=== PATIENT | male | born 1975 | race Caucasian/White ===

== ENCOUNTER → 2016-06-19 | Outpatient (CLI) | payer MEDICAID | LOC: LAB 08:23 | PROVIDERS: ATTEND Nurse Practitioner Family | DX: E03.9 Hypothyroidism, unspecified (principal) | CPT/HCPCS: 36415; 84443 ==

== ENCOUNTER 2016-06-28 19:21 | Emergency (ER) | payer MEDICAID ==
--- NOTE | 2016-06-28 19:33 | ER Document Report ---
ED Medical Screen (RME) - General Stated Complaint: DIZZINESS Notes: Dizziness progressive over the last several weeks today he had a syncopal episode. Syncopal episode after changing position I greeted and performed a rapid initial assessment of this patient. Comprehensive ED assessment and evaluation of the patient, analysis of test results and completion of the medical decision making process will be conducted by additional ED providers. TRAVEL OUTSIDE OF THE [place] IN LAST 30 DAYS: No - Related Data Allergies/Adverse Reactions: No Known Allergies Allergy (Unverified 06/28/16 19:31)
[2016-06-28 20:24] LABS: ABSOLUTE BASOPHILS # (AUTO) 0.1 10^3/uL (0.0-0.2); ABSOLUTE EOSINOPHILS # (AUTO) 0.3 10^3/uL (0.0-0.6); ABSOLUTE LYMPHOCYTES (AUTO) 2.1 10^3/uL (0.5-4.7); ABSOLUTE MONOCYTES (AUTO) 0.6 10^3/uL (0.1-1.4); ABSOLUTE NEUT (AUTO) 4.9 10^3/uL (1.7-8.2); BASOPHILS % (AUTO) 1.1 % (0-2); EOSINOPHILS % (AUTO) 3.9 % (0-6); HEMATOCRIT 45.7 % (37.9-51.0); HEMOGLOBIN 15.6 g/dL (13.5-17.0); HGB HCT DIFFERENCE 1.1; LYMPHOCYTES % (AUTO) 26.1 % (13-45); MEAN CORPUSCULAR HEMOGLOBIN 31.6 pg (27.0-33.4); MEAN CORPUSCULAR HGB CONC 34.2 g/dL (32.0-36.0); MEAN CORPUSCULAR VOLUME 92 fl (80-97); MONOCYTES % (AUTO) 8.1 % (3-13); RED BLOOD COUNT 4.95 10^6/uL (4.35-5.55); RED CELL DISTRIBUTION WIDTH 13.4 % (11.5-14.0); SEGMENTED NEUTROPHILS % (AUTO) 60.8 % (42-78)
[2016-06-28 20:43] LABS: ALANINE AMINOTRANSFERASE 68 U/L (21-72); ALBUMIN 4.3 g/dL (3.5-5.0); ALKALINE PHOSPHATASE 90 U/L (38-126); ANION GAP 13 (5-19); ASPARTATE AMINO TRANSFERASE 33 U/L (17-59); BILIRUBIN,TOTAL 0.5 mg/dL (0.2-1.3); BLOOD UREA NITROGEN 14 mg/dL (7-20); CALCIUM 9.9 mg/dL (8.4-10.2); CARBON DIOXIDE 28 mmol/L (22-30); CHLORIDE 100 mmol/L (98-107); CREATININE RESULT 0.94 mg/dL (0.52-1.25); GLUCOSE 89 mg/dL (75-110); POTASSIUM 4.6 mmol/L (3.6-5.0); SODIUM 141.2 mmol/L (137-145); TOTAL PROTEIN 7.5 g/dL (6.3-8.2)
--- NOTE | 2016-06-28 21:38 | ER Document Report ---
ED General - General Chief Complaint: Syncope Stated Complaint: DIZZINESS Time seen by provider: 21:40 Notes: Patient is a 41-year-old male that comes emergency department for chief complaint of episodes where he becomes lightheaded and his vision blurs and he feels a "pressure in his head" when he stands, states this happens frequently since yesterday, has happened intermittently for 1 month. 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 Chin. He denies any chest pain, shortness of breath, he does state that he felt like he blacked out for a couple of seconds and staggered backwards into a chair. He denies any fall or injury. TRAVEL OUTSIDE OF THE [place] IN LAST 30 DAYS: No - Related Data Allergies/Adverse Reactions: No Known Allergies Allergy (Unverified 06/28/16 19:31) Past Medical History - General Information source: Patient - Social History Smoking Status: Former Smoker Chew tobacco use (# tins/day): No Frequency of alcohol use: Rare Drug Abuse: None Lives with: Family Family History: Hypertension Patient has suicidal ideation: No Patient has homicidal ideation: No - Past Medical History Cardiac Medical History: Reports: Hx Coronary Artery Disease, Hx Hypertension Renal/ Medical History: Denies: Hx Peritoneal Dialysis Surgical Hx: Negative - Immunizations Immunizations up to date: Yes Hx Diphtheria, Pertussis, Tetanus Vaccination: Yes Review of Systems - Review of Systems Constitutional: No symptoms reported EENT: No symptoms reported Cardiovascular: See HPI Respiratory: No symptoms reported Gastrointestinal: No symptoms reported Genitourinary: No symptoms reported Male Genitourinary: No symptoms reported Musculoskeletal: No symptoms reported Skin: No symptoms reported Hematologic/Lymphatic: No symptoms reported Neurological/Psychological: See HPI Physical Exam - Vital signs Vitals: Temp Pulse Resp BP Pulse Ox 97.6 F 69 20 121/82 98 06/28/16 19:35 06/28/16 19:35 06/28/16 19:35 06/28/16 19:35 06/28/16 19:35 Interpretation: Normal - General General appearance: Appears well, Alert In distress: None - Smiling, talkative, well-appearing - HEENT Head: Normocephalic, Atraumatic Eyes: Normal Conjunctiva: Normal Extraocular movements intact: Yes Eyelashes: Normal Pupils: PERRL Ears: Normal External canal: Normal Tympanic membrane: Normal Sinus: Normal Nasal: Normal Mouth/Lips: Normal Mucous membranes: Normal Pharynx: Normal Neck: Normal - Respiratory Respiratory status: No respiratory distress Chest status: Nontender Breath sounds: Normal. No: Decreased air movement, Wheezing Chest palpation: Normal - Cardiovascular Rhythm: Regular. No: Tachycardia Heart sounds: Normal auscultation, S1 appreciated, S2 appreciated Murmur: No - Abdominal Inspection: Normal Distension: No distension Bowel sounds: Normal Tenderness: Nontender. No: Tender, Guarding Organomegaly: No organomegaly - Back Back: Normal, Nontender - Extremities General upper extremity: Normal inspection, Nontender, Normal color, Normal ROM , Normal temperature General lower extremity: Normal inspection, Nontender, Normal color, Normal ROM , Normal temperature, Normal weight bearing. No: Carly's sign - Neurological Neuro grossly intact: Yes Cognition: Normal Orientation: AAOx4 [place] Coma Scale Eye Opening: Spontaneous [place] Coma Scale Verbal: Oriented [place] Coma Scale Motor: Obeys Commands Hillary Coma Scale Total: 15 Speech: Normal Motor strength normal: LUE, RUE, LLE, RLE Sensory: Normal - Psychological Associated symptoms: Normal affect, Normal mood - Skin Skin Temperature: Warm Skin Moisture: Dry Skin Color: Normal Course - Re-evaluation Re-evalutation: EKG shows sinus rhythm, T-wave inversion in V2, flattened T-wave in aVL, no T- wave inversions in consecutive leads, no ST segment changes, improved when compared to prior which had previous depressions and T waves in V2 and V3. Normal neurologic exam. No concerning findings on monitoring of patient on telemetry. I performed orthostatic vital signs on patient which were normal. Patient states that he only gets symptoms if he sits up for about 15 minutes or so and then gets up and walks around. I perform this on patient and patient had no symptoms or abnormalities. Patient ambulated around the department with pulse and pulse ox monitoring, patient had no symptoms. Patient has remained asymptomatic during his stay. Unremarkable workup including CBC, chemistry, cardiac enzymes. Patient very happy with this, states he feels great and he wants to go home. Patient states that in the past when he has had this he has held his lisinopril dose and had improvement of symptoms, patient states he will do this at home but he'll continue to monitor his blood pressure. Patient already has cardiology follow-up, nonspecific symptoms, I have low suspicion of life-threatening arrhythmia, acute coronary syndrome, or other emergent pathology. Discussed return precautions, patient states understanding and agreement. - Vital Signs Vital signs: Temp Pulse Resp BP Pulse Ox 98.4 F 61 16 124/80 97 06/29/16 00:00 06/28/16 23:25 06/29/16 00:00 06/29/16 00:00 06/29/16 00:00 - Laboratory Result Diagrams: 06/28/16 19:59 06/28/16 19:57 Discharge - Discharge Clinical Impression: Lightheadedness Condition: Stable Disposition: HOME, SELF-CARE Additional Instructions: Monitoring here, workup, and evaluation do not show any acute abnormalities. Please keep a follow-up with your pantry worker appointment. Perform slow position changes, stay hydrated, continue to monitor and adjust blood pressure as discussed Return to emergency department for any concerning or worsening symptoms including chest pain, shortness of breath, passing out, etc. Referrals: HIRAL SHIPLEY FNP [Primary Care Provider] - Follow up as needed
--- NOTE | 2016-06-28 23:04 | EKG REPORT ---
SEVERITY:- ABNORMAL ECG - SINUS RHYTHM PROBABLE LEFT ATRIAL ABNORMALITY PROBABLE ANTEROSEPTAL INFARCT, AGE INDETERM : Confirmed by: Elizabeth José MD 28-Jun-2016 23:03:33
[2016-06-29 00:22] VITALS: BP 124/80
== END 2016-06-29 00:23 | disposition home or self-care (01) ==
LOC: ER 19:21
DX: R42 Dizziness and giddiness (principal); I10 Essential (primary) hypertension; I25.10 Atherosclerotic heart disease of native coronary artery without angina pectoris; Z79.899 Other long term (current) drug therapy; Z98.61 Coronary angioplasty status; Z79.02 Long term (current) use of antithrombotics/antiplatelets; Z87.891 Personal history of nicotine dependence
CPT/HCPCS: 36415; 80053; 84484; 85025; 93005; 93010; 99284

== ENCOUNTER → 2016-07-27 | Outpatient (CLI) | payer MEDICAID | LOC: SP 12:46 | PROVIDERS: ATTEND Internal Medicine Cardiovascular Disease | DX: R42 Dizziness and giddiness (principal) | CPT/HCPCS: 93880 ==

== ENCOUNTER 2016-09-08 15:58 | Emergency (ER) | payer MEDICAID ==
[2016-09-08 16:18] VITALS: BP 129/85
--- NOTE | 2016-09-08 16:31 | ER Document Report ---
ED Medical Screen (RME) - General Chief Complaint: Blood Pressure Problem Stated Complaint: DIZZY,NAUSEA,ELEVATED BLOOD PRESSURE Notes: 41-year-old male patient with a history of coronary artery disease with 2 stents in February 2016 taking Effient. Reports blood pressure is been getting progressively higher for the past week. He reports that he has been getting increasingly sluggish feeling with some nausea after eating. Today about 2:30 PM he got much worse with lightheadedness, head pressure and headache, weakness and hot flashes. I have greeted and performed a rapid initial assessment of this patient. A comprehensive ED assessment and evaluation of the patient, analysis of test results and completion of the medical decision making process will be conducted by additional ED providers. TRAVEL OUTSIDE OF THE [place] IN LAST 30 DAYS: No - Related Data Allergies/Adverse Reactions: No Known Allergies Allergy (Verified 09/08/16 16:14) Past Medical History - Past Medical History Cardiac Medical History: Reports: Hx Coronary Artery Disease, Hx Heart Attack, Hx Hypertension Renal/ Medical History: Denies: Hx Peritoneal Dialysis Past Surgical History: Reports: Hx Cardiac Surgery - stents x2 - Immunizations Immunizations up to date: Yes Hx Diphtheria, Pertussis, Tetanus Vaccination: Yes Physical Exam - Vital signs Vitals: Temp Pulse Resp BP Pulse Ox 98.0 F 69 18 129/85 H 97 09/08/16 16:17 09/08/16 16:17 09/08/16 16:17 09/08/16 16:17 09/08/16 16:17 Course - Vital Signs Vital signs: Temp Pulse Resp BP Pulse Ox 98.0 F 69 18 129/85 H 97 09/08/16 16:17 09/08/16 16:17 09/08/16 16:17 09/08/16 16:17 09/08/16 16:17
[2016-09-08 16:53] LABS: ABSOLUTE BASOPHILS # (AUTO) 0.1 10^3/uL (0.0-0.2); ABSOLUTE EOSINOPHILS # (AUTO) 0.2 10^3/uL (0.0-0.6); ABSOLUTE LYMPHOCYTES (AUTO) 1.8 10^3/uL (0.5-4.7); ABSOLUTE MONOCYTES (AUTO) 0.8 10^3/uL (0.1-1.4); ABSOLUTE NEUT (AUTO) 5.4 10^3/uL (1.7-8.2); BASOPHILS % (AUTO) 1.1 % (0-2); EOSINOPHILS % (AUTO) 2.8 % (0-6); HEMATOCRIT 43.9 % (37.9-51.0); HEMOGLOBIN 15.3 g/dL (13.5-17.0); LYMPHOCYTES % (AUTO) 21.6 % (13-45); MEAN CORPUSCULAR HEMOGLOBIN 31.9 pg (27.0-33.4); MEAN CORPUSCULAR HGB CONC 34.8 g/dL (32.0-36.0); MEAN CORPUSCULAR VOLUME 92 fl (80-97); MONOCYTES % (AUTO) 9.7 % (3-13); RED BLOOD COUNT 4.79 10^6/uL (4.35-5.55); SEGMENTED NEUTROPHILS % (AUTO) 64.8 % (42-78); WHITE BLOOD COUNT 8.4 10^3/uL (4.0-10.5)
[2016-09-08 17:21] LABS: ALANINE AMINOTRANSFERASE 63 U/L (21-72); ALBUMIN 4.6 g/dL (3.5-5.0); ALKALINE PHOSPHATASE 82 U/L (38-126); ANION GAP 13 (5-19); ASPARTATE AMINO TRANSFERASE 40 U/L (17-59); BILIRUBIN,DIRECT 0.2 mg/dL (0.0-0.4); BILIRUBIN,TOTAL 0.4 mg/dL (0.2-1.3); BLOOD UREA NITROGEN 9 mg/dL (7-20); CALCIUM 9.9 mg/dL (8.4-10.2); CARBON DIOXIDE 28 mmol/L (22-30); CHLORIDE 102 mmol/L (98-107); CREATINE KINASE 97 U/L (55-170); CREATININE RESULT 0.83 mg/dL (0.52-1.25); GLUCOSE 79 mg/dL (75-110); POTASSIUM 4.5 mmol/L (3.6-5.0); SODIUM 142.7 mmol/L (137-145); TOTAL PROTEIN 7.2 g/dL (6.3-8.2)
[2016-09-08 17:33] LABS: CREATINE KINASE MB 0.79 ng/mL (<4.55)
--- NOTE | 2016-09-08 17:33 | EKG REPORT ---
SEVERITY:- ABNORMAL ECG - SINUS RHYTHM PROBABLE LEFT ATRIAL ABNORMALITY PROBABLE ANTEROSEPTAL INFARCT, OLD : Confirmed by: Vincent Birch MD 08-Sep-2016 17:33:34
[2016-09-08 17:34] LABS: TROPONIN I < 0.012 ng/mL
[2016-09-08 17:38] LABS: FREE T3 3.86 pg/mL (2.77-5.27)
[2016-09-08 20:02] LABS: APPEARANCE,URINE CLEAR; BILIRUBIN,URINE NEGATIVE (NEGATIVE); GLUCOSE, URINE NEGATIVE (NEGATIVE); KETONES,URINE NEGATIVE (NEGATIVE); LEUKOCYTE ESTERASE,URINE NEGATIVE (NEGATIVE); NITRITE,URINE NEGATIVE (NEGATIVE); PROTEIN,URINE NEGATIVE (NEGATIVE); URINE SPECIFIC GRAVITY 1.006; UROBILINOGEN,URINE NEGATIVE mg/dL (<2.0)
== END 2016-09-08 18:17 | disposition left against medical advice (07) ==
LOC: ER 15:58
DX: Z53.9 Procedure and treatment not carried out, unspecified reason (principal); I10 Essential (primary) hypertension; R42 Dizziness and giddiness; R03.0 Elevated blood-pressure reading, without diagnosis of hypertension; R51 Headache
CPT/HCPCS: 36415; 71020; 80053; 81001; 82550; 82553; 84439; 84481; 84484; 85025; 93005; 93010; 99281

== ENCOUNTER → 2017-01-20 | Outpatient (CLI) | payer MEDICAID ==
--- NOTE | 2017-01-20 14:18 | RADIOLOGY REPORT (SQ) ---
EXAM DESCRIPTION: U/S ABDOMEN COMPLETE W/O DOP COMPLETED DATE/TIME: 01/20/2017 10:05 am REASON FOR STUDY: RUQ PAIN R10.11 RIGHT UPPER QUADRANT PAIN R10.13 EPIGASTRIC PAIN COMPARISON: None. TECHNIQUE: Dynamic and static grayscale images acquired of the abdomen and recorded on PACS. Additio nal selected color Doppler and spectral images recorded. LIMITATIONS: None. FINDINGS: PANCREAS: No masses. Visualized pancreatic duct normal caliber. LIVER: No masses. Mild fatty change. Upper limits of normal in size. LIVER VASCULATURE: Normal directional flow of the main portal vein and hepatic veins. GALLBLADDER: No stones. Normal wall thickness. No pericholecystic fluid. ULTRASOUND-DETECTED DELEON'S SIGN: Negative. INTRAHEPATIC DUCTS AND COMMON DUCT: CBD and intrahepatic ducts normal caliber. No filling defects. INFERIOR VENA CAVA: Normal flow. AORTA: No aneurysm. RIGHT KIDNEY: Normal size. Normal echogenicity. No solid or suspicious masses. No hydronephros is. No calcifications. LEFT KIDNEY: Normal size. Normal echogenicity. No solid or suspicious masses. No hydronephrosi s. No calcifications. SPLEEN: Normal size. No solid masses. PERITONEAL AND PLEURAL SPACES: No ascites or effusions. OTHER: No other significant finding. IMPRESSION: Fatty liver otherwise normal abdominal ultrasound. TECHNICAL DOCUMENTATION: JOB ID: [id number] [employer]- All Rights Reserved
== END ==
LOC: RAD 09:10
PROVIDERS: ATTEND Internal Medicine Gastroenterology
DX: R10.11 Right upper quadrant pain (principal); R10.13 Epigastric pain
CPT/HCPCS: 76700

== ENCOUNTER 2017-03-23 17:24 | Emergency (ER) | payer MEDICAID ==
[2017-03-23] MEDS ORDERED: ASPIRIN 81 MG TABLET, CHEWABLE PO ONE (17:31)
[2017-03-23 18:01] LABS: ABSOLUTE BASOPHILS # (AUTO) 0.1 10^3/uL (0.0-0.2); ABSOLUTE EOSINOPHILS # (AUTO) 0.3 10^3/uL (0.0-0.6); ABSOLUTE LYMPHOCYTES (AUTO) 1.8 10^3/uL (0.5-4.7); ABSOLUTE MONOCYTES (AUTO) 0.7 10^3/uL (0.1-1.4); ABSOLUTE NEUT (AUTO) 4.5 10^3/uL (1.7-8.2); BASOPHILS % (AUTO) 1.1 % (0-2); EOSINOPHILS % (AUTO) 3.6 % (0-6); HEMATOCRIT 42.5 % (37.9-51.0); HEMOGLOBIN 15.2 g/dL (13.5-17.0); HGB HCT DIFFERENCE 3.1; LYMPHOCYTES % (AUTO) 24.3 % (13-45); MEAN CORPUSCULAR HEMOGLOBIN 32.8 pg (27.0-33.4); MEAN CORPUSCULAR HGB CONC 35.7 g/dL (32.0-36.0); MEAN CORPUSCULAR VOLUME 92 fl (80-97); MONOCYTES % (AUTO) 9.6 % (3-13); RED BLOOD COUNT 4.63 10^6/uL (4.35-5.55); RED CELL DISTRIBUTION WIDTH 12.9 % (11.5-14.0); SEGMENTED NEUTROPHILS % (AUTO) 61.4 % (42-78); WHITE BLOOD COUNT 7.4 10^3/uL (4.0-10.5)
--- NOTE | 2017-03-23 18:02 | RADIOLOGY REPORT (SQ) ---
EXAM DESCRIPTION: CHEST SINGLE VIEW COMPLETED DATE/TIME: 03/23/2017 5:51 pm REASON FOR STUDY: chest pain COMPARISON: August 2016 EXAM PARAMETERS: NUMBER OF VIEWS: One view. TECHNIQUE: Single frontal radiographic view of the chest acquired. RADIATION DOSE: NA LIMITATIONS: None. FINDINGS: LUNGS AND PLEURA: No opacities, masses or pneumothorax. No pleural effusion. MEDIASTINUM AND HILAR STRUCTURES: No masses. Contour normal. HEART AND VASCULAR STRUCTURES: Heart normal in size. Normal vasculature. BONES: No acute findings. HARDWARE: None in the chest. OTHER: No other significant finding. IMPRESSION: NO ACUTE RADIOGRAPHIC FINDING IN THE CHEST. TECHNICAL DOCUMENTATION: JOB ID: [id number]
[2017-03-23 18:19] LABS: ALANINE AMINOTRANSFERASE 65 U/L (21-72); ALBUMIN 4.8 g/dL (3.5-5.0); ALKALINE PHOSPHATASE 86 U/L (38-126); ANION GAP 15 (5-19); ASPARTATE AMINO TRANSFERASE 34 U/L (17-59); BILIRUBIN,DIRECT 0.4 mg/dL (0.0-0.4); BILIRUBIN,TOTAL 0.5 mg/dL (0.2-1.3); BLOOD UREA NITROGEN 12 mg/dL (7-20); CARBON DIOXIDE 27 mmol/L (22-30); CHLORIDE 99 mmol/L (98-107); CREATINE KINASE 77 U/L (55-170); CREATININE RESULT 0.93 mg/dL (0.52-1.25); GLUCOSE 89 mg/dL (75-110); POTASSIUM 4.2 mmol/L (3.6-5.0); SODIUM 140.7 mmol/L (137-145); TOTAL PROTEIN 7.5 g/dL (6.3-8.2)
[2017-03-23 18:29] LABS: CREATINE KINASE MB 0.62 ng/mL (<4.55)
[2017-03-23 18:31] LABS: TROPONIN I < 0.012 ng/mL
--- NOTE | 2017-03-23 18:47 | ER Document Report ---
ED General - General Chief Complaint: Chest Pain > 30 Stated Complaint: CHEST PAIN Time Seen by Provider: 03/23/17 17:30 Mode of Arrival: Medic Information source: Patient, Emergency Med Personnel, Office Notes: 41-year-old male history of 2 previous stents [place] in February at [facility] presents from low voltage electrician's office with concerns of chest pain. Patient was seen yesterday had a stress test performed and noted to become hypotensive during the procedure and have chest pain. Patient was seen by the cardiology physician contract administrative assistant today and sent in for evaluation. TRAVEL OUTSIDE OF THE [place] IN LAST 30 DAYS: No - HPI Onset: Yesterday Onset/Duration: Intermittent Quality of pain: Pressure Severity: Mild Pain Level: 1 Associated symptoms: Chest pain Exacerbated by: Denies Relieved by: Denies Similar symptoms previously: No Recently seen / treated by doctor: No - Related Data Allergies/Adverse Reactions: No Known Allergies Allergy (Verified 03/23/17 17:29) Home Medications: Current Home Medications Albuterol Sulfate [Proair HFA] 2 puff IH PRN PRN 03/23/17 [History] Aspirin [Aspirin EC] 1 tab PO DAILY 03/23/17 [History] Clonazepam [Klonopin] 0.5 tab PO DAILY 03/23/17 [History] Cyanocobalamin/Folic Acid [Vitamin B-12 & Folic Acid Tablet] 1 each PO DAILY [History] Hydrocodone/Acetaminophen [Hydrocodon-Acetaminophen 5-325] 1 tab PO QID [History] Levothyroxine Sodium 1 tab PO DAILY 03/23/17 [History] Meloxicam [Meloxicam] 1 tab PO BID 03/23/17 [History] Metoprolol Succinate 1 tab PO DAILY 03/23/17 [History] Omeprazole [Omeprazole] 1 cap PO QAM 03/23/17 [History] Pitavastatin Calcium [Livalo] 1 tab PO QHS 03/23/17 [History] Prasugrel HCl [Effient] 1 tab PO DAILY 03/23/17 [History] Pyridoxine HCl (Vitamin B6) [Vitamin B-6] 1 tab PO DAILY 03/23/17 [History] Ranolazine [Ranexa 500 mg Tab.sr] 1 tab PO BID 03/23/17 [History] Sertraline HCl [Zoloft 50 mg Tablet] 1 tab PO DAILY 03/23/17 [History] Past Medical History - Social History Smoking Status: Never Smoker Cigarette use (# per day): No Chew tobacco use (# tins/day): No Smoking Education Provided: No Family History: Hypertension - Past Medical History Cardiac Medical History: Reports: Hx Coronary Artery Disease, Hx Heart Attack, Hx Hypertension Renal/ Medical History: Denies: Hx Peritoneal Dialysis Past Surgical History: Reports: Hx Cardiac Surgery - stents x2 - Immunizations Immunizations up to date: Yes Hx Diphtheria, Pertussis, Tetanus Vaccination: Yes Review of Systems - Review of Systems Notes: REVIEW OF SYSTEMS: CONSTITUTIONAL : Denies fever, chills, or sweats. Denies recent illness. EENT: Denies eye, ear, throat, or mouth pain or symptoms. Denies nasal or sinus congestion or discharge. Denies throat, tongue, or mouth swelling or difficulty swallowing. CARDIOVASCULAR: Admits to chest pain RESPIRATORY: Denies cough, cold, or chest congestion. Denies shortness of breath, difficulty breathing, or wheezing. GASTROINTESTINAL: Denies abdominal pain or distention. Denies nausea, vomiting , or diarrhea. Denies blood in vomitus, stools, or per rectum. Denies black, tarry stools. Denies constipation. GENITOURINARY: Denies difficulty urinating, painful urination, burning, frequency, blood in urine, or discharge. MUSCULOSKELETAL: Denies back or neck pain or stiffness. Denies joint pain or swelling. SKIN: Denies rash, lesions or sores. HEMATOLOGIC : Denies easy bruising or bleeding. LYMPHATIC: Denies swollen, enlarged glands. NEUROLOGICAL: Denies confusion or altered mental status. Denies passing out or loss of consciousness. Denies dizziness or lightheadedness. Denies headache. Denies weakness or paralysis or loss of use of either side. Denies problems with gait or speech. Denies sensory loss, numbness, or tingling. Denies seizures. PSYCHIATRIC: Denies anxiety or stress. Denies depression, suicidal ideation, or homicidal ideation. ALL OTHER SYSTEMS REVIEWED AND NEGATIVE. Dictation was performed using [employer] voice recognition software PHYSICAL EXAMINATION: GENERAL: Well-appearing, well-nourished and in no acute distress. HEAD: Atraumatic, normocephalic. EYES: Pupils equal round and reactive to light, extraocular movements intact, sclera anicteric, conjunctiva are normal. ENT: Nares patent, oropharynx clear without exudates. Moist mucous membranes. NECK: Normal range of motion, supple without lymphadenopathy LUNGS: Breath sounds clear to auscultation bilaterally and equal. No wheezes rales or rhonchi. HEART: Regular rate and rhythm without murmurs ABDOMEN: Soft, nontender, nondistended abdomen. No guarding, no rebound. No masses appreciated. Musculoskeletal: Normal range of motion, no pitting or edema. No cyanosis. NEUROLOGICAL: Cranial nerves grossly intact. Normal speech, normal gait. Normal sensory, motor exams PSYCH: Normal mood, normal affect. SKIN: Warm, Dry, normal turgor, no rashes or lesions noted. Physical Exam - Vital signs Vitals: Temp Pulse Ox 98.1 F 99 03/23/17 17:28 03/23/17 17:28 Course - Re-evaluation Re-evalutation: 03/23/17 18:44 [facility] paged 03/23/17 18:48 They note they are full will contact desean spoke with patients low voltage electrician, positive chest pain during stress test yesterday, positive fixed defect 03/23/17 19:[address] cardio involvement 03/23/17 19:32 Pt accepted by [facility] for cath tomorrow morning by Dr Coburn 03/23/17 20:[address] Ellen Bradley who accepts for transfer 03/23/17 23:14 Patient does not wish to go to [facility] and will wait around for [facility] - Vital Signs Vital signs: Temp Pulse Resp BP Pulse Ox 98.1 F 15 123/83 98 03/23/17 19:40 03/23/17 22:01 03/23/17 22:01 03/23/17 22:01 - Laboratory Result Diagrams: 03/23/17 17:40 03/23/17 17:40 - Diagnostic Test Radiology reviewed: Image reviewed, Reports reviewed - EKG Interpretation by Hi EKG shows normal: Sinus rhythm, [place], Intervals, QRS Complexes, ST-T Waves Discharge - Discharge Clinical Impression: Chest pain Qualifiers: Chest pain type: unspecified Qualified Code(s): R07.9 - Chest pain, unspecified Condition: Fair Disposition: [facility] Referrals: HIRAL SHIPLEY FNP [Primary Care Provider] - Follow up as needed
--- NOTE | 2017-03-24 00:04 | EKG REPORT ---
SEVERITY:- ABNORMAL ECG - SINUS RHYTHM ABNRM R PROG, CONSIDER ASMI OR LEAD PLACEMENT : Confirmed by: Eugenia Chin 24-Mar-2017 00:03:55
[2017-03-24 09:07] VITALS: BP 124/93
== END 2017-03-24 09:07 | disposition short-term general hospital (02) ==
LOC: ER 17:24
DX: R07.9 Chest pain, unspecified (principal); I10 Essential (primary) hypertension; I25.10 Atherosclerotic heart disease of native coronary artery without angina pectoris; I25.2 Old myocardial infarction; Z95.5 Presence of coronary angioplasty implant and graft
CPT/HCPCS: 36415; 71010; 80053; 82550; 82553; 84484; 85025; 93005; 93010; 99285

== ENCOUNTER 2017-04-26 23:59 | Emergency (ER) | payer MEDICAID ==
[2017-04-27] MEDS ORDERED: ASPIRIN 81 MG TABLET, CHEWABLE PO ONE (00:02)
[2017-04-27 01:47] LABS: ABSOLUTE BASOPHILS # (AUTO) 0.1 10^3/uL (0.0-0.2); ABSOLUTE EOSINOPHILS # (AUTO) 0.3 10^3/uL (0.0-0.6); ABSOLUTE LYMPHOCYTES (AUTO) 2.4 10^3/uL (0.5-4.7); ABSOLUTE MONOCYTES (AUTO) 0.8 10^3/uL (0.1-1.4); ABSOLUTE NEUT (AUTO) 5.1 10^3/uL (1.7-8.2); HEMATOCRIT 40.1 % (37.9-51.0); HEMOGLOBIN 14.1 g/dL (13.5-17.0); HGB HCT DIFFERENCE 2.2; LYMPHOCYTES % (AUTO) 27.4 % (13-45); MEAN CORPUSCULAR HEMOGLOBIN 32.4 pg (27.0-33.4); MEAN CORPUSCULAR HGB CONC 35.2 g/dL (32.0-36.0); MEAN CORPUSCULAR VOLUME 92 fl (80-97); MONOCYTES % (AUTO) 8.8 % (3-13); RED BLOOD COUNT 4.36 10^6/uL (4.35-5.55); RED CELL DISTRIBUTION WIDTH 13.4 % (11.5-14.0); SEGMENTED NEUTROPHILS % (AUTO) 58.8 % (42-78); WHITE BLOOD COUNT 8.7 10^3/uL (4.0-10.5)
--- NOTE | 2017-04-27 02:06 | ER Document Report ---
ED General - General Chief Complaint: Chest Pain Stated Complaint: CHEST PAIN Time Seen by Provider: 04/27/17 01:16 Notes: Patient is a 42-year-old male presents with complaint of chest pain. Chest pain is mainly substernal he says it mainly occurs whenever he has a PVC but is also having some continuous pain besides that. No difficulty breathing. No vomiting. No fevers. He has also some cramping type pain going into all 4 extremities. Patient does have history of coronary disease. He is followed by Dr. Upton. He had stents placed in February. He was then having chest pain again and had a positive stress test and was sent back on March 24. That time he had a cardiac cath which showed a 50% occlusion but no surgical disease at that time. Patient says over last 24 hours she has developed the pain has gotten worse and therefore came to the ER. He is a former smoker but no longer smokes. He is taking aspirin. He is on no other blood thinners. TRAVEL OUTSIDE OF THE [place] IN LAST 30 DAYS: No - Related Data Allergies/Adverse Reactions: No Known Allergies Allergy (Verified 04/27/17 00:15) Past Medical History - Social History Smoking Status: Never Smoker Frequency of alcohol use: None Drug Abuse: None Family History: Hypertension Patient has suicidal ideation: No Patient has homicidal ideation: No - Past Medical History Cardiac Medical History: Reports: Hx Coronary Artery Disease, Hx Heart Attack, Hx Hypertension Renal/ Medical History: Denies: Hx Peritoneal Dialysis Past Surgical History: Reports: Hx Cardiac Surgery - stents x2 - Immunizations Immunizations up to date: Yes Hx Diphtheria, Pertussis, Tetanus Vaccination: Yes Review of Systems - Review of Systems Notes: My Normal Review Basic REVIEW OF SYSTEMS: CONSTITUTIONAL : Denies fever, chills, or sweats. Denies recent illness. EENT: Denies eye, ear, throat, or mouth pain or symptoms. Denies nasal or sinus congestion. CARDIOVASCULAR: Has chest pain RESPIRATORY: Denies cough, cold, or chest congestion. Denies shortness of breath, difficulty breathing, or wheezing. GASTROINTESTINAL: Denies abdominal pain. Denies nausea, vomiting, or diarrhea. Denies constipation. Last BM: GENITOURINARY: Denies difficulty urinating, painful urination, burning, frequency, or blood in urine. MUSCULOSKELETAL: Denies neck or back pain or joint pain or swelling. SKIN: Denies rash or skin lesions. NEUROLOGICAL: Denies altered mental status or loss of consciousness. Denies headache. Denies weakness or paralysis or loss of use of either side. Denies problems with gait or speech. Denies sensory or motor loss. ALL OTHER SYSTEMS REVIEWED AND NEGATIVE. Physical Exam - Vital signs Vitals: Temp Pulse Resp BP Pulse Ox 97.4 F 66 18 138/73 H 98 04/27/17 00:15 04/27/17 00:15 04/27/17 00:15 04/27/17 00:15 04/27/17 00:15 - Notes Notes: General Appearance: Well nourished, alert, cooperative, no acute distress, mild obvious discomfort. Vitals: reviewed, See vital signs table. Head: no swelling or tenderness to the head Eyes: PERRL, EOMI, Conjuctiva clear Mouth: No decreasd moisture Lungs: No wheezing, No rales, No rhonci, No accessory muscle use, good air exchange bilaterally. Heart: Normal rate, Regular rythm, No murmur, no rub Abdomen: Normal BS, soft, No rigidity, No abdominal tenderness, No guarding, no rebound, Extremities: strength 5/5 in all extremities, good pulses in all extremities, no swelling or tenderness in the extremities, no edema. Skin: warm, dry, appropriate color, no rash Neuro: speech clear, oriented x 3, normal affect, responds appropriately to questions. Course - Re-evaluation Re-evalutation: 04/27/17 05:45 After the patient's initial troponins came back and did talk to her hospitalist about admission and he feels that the patient needs to be transferred to the facility taken to cardiac cath being that he has known coronary artery disease with 50% blockage and has ongoing chest pain. I therefore talked to the patient informed him that I feel the appropriate thing would be to transfer back to [facility]. Patient is not when he transferred does not want stay in the hospital. He says if his cardiac enzymes are negative he prefers just to follow-up with his gravel weigher in the morning. I informed him that negative cardiac enzymes about 100% rule out an impending SC and that the safest thing would be to be transferred to the facility. Patient shows understanding of this but refuses admission or transfer. I was able to talk him into getting a repeat troponin. Patient says he cannot wait the full 3 hours for repeat troponin I would have to be done immediately. Patient's repeat troponin was therefore done just under 2 hours after initial. They came back at less than 0.012. Patient was discharged as he requested but strongly encouraged to return to ER immediately if he has any worsening chest pain difficulty breathing or feels unwell. I again strongly encouraged him to follow -up with his gravel weigher this morning as he said he would do. Also talked to patient about the PVCs. Patient has occasional PVCs. This seems to be the creation of most his pain as he says the pain typically occurs mainly whenever he feels that he is having these PVCs. His mentions that his PVCs started occurring more often after he was started on a new antidepressant medication. I informed him to talk to his primary care doctor about possibly changing this medication or stopping altogether. Patient encouraged to return to ER anytime for further evaluation and treatment. Patient agrees with plan will be discharged home. Dictation of this chart was performed using voice recognition software; therefore, there may be some unintended grammatical errors. 04/27/17 05:47 - Vital Signs Vital signs: Temp Pulse Resp BP Pulse Ox 97.5 F 66 15 122/79 100 04/27/17 04:35 04/27/17 00:15 04/27/17 04:01 04/27/17 04:01 04/27/17 04:01 - Laboratory Result Diagrams: 04/27/17 01:34 04/27/17 01:34 - EKG Interpretation by Me Additional EKG results interpreted by me: 04/27/17 01:52 EKG is reviewed and interpreted by me. EKG shows normal sinus rhythm with rate of 60 bpm. Patient has very mild ST segment elevation in leads V2 which is unchanged comparison to his old EKG from March 23, 2017. LA interval, QRS duration, QTc intervals are within normal range. Discharge - Discharge Clinical Impression: Chest pain Qualifiers: Chest pain type: unspecified Qualified Code(s): R07.9 - Chest pain, unspecified Condition: Good Disposition: HOME, SELF-CARE Additional Instructions: Your cardiac enzymes were negative. As discussed with you I still do not feel that your workup is 100% in ruling out an impending heart attack being that you have a known history of a coronary blockage. I respect your decision to leave, but please return to the ER immediately if you have worsening of your symptoms or difficulty breathing. Please follow up with Dr. Upton's office this morning as we discussed. Talk to your doctor about potentially cutting back on your new antidepressant medication. Referrals: HIRAL SHIPLEY FNP [Primary Care Provider] - Follow up as needed ANA UPTON MD [ACTIVE STAFF] - 04/27/17
[2017-04-27 02:10] LABS: ALANINE AMINOTRANSFERASE 63 U/L (21-72); ALBUMIN 4.2 g/dL (3.5-5.0); ALKALINE PHOSPHATASE 74 U/L (38-126); ANION GAP 12 (5-19); ASPARTATE AMINO TRANSFERASE 33 U/L (17-59); BILIRUBIN,DIRECT 0.3 mg/dL (0.0-0.4); BILIRUBIN,TOTAL 0.3 mg/dL (0.2-1.3); BLOOD UREA NITROGEN 14 mg/dL (7-20); CALCIUM 9.1 mg/dL (8.4-10.2); CARBON DIOXIDE 27 mmol/L (22-30); CHLORIDE 102 mmol/L (98-107); CREATINE KINASE 138 U/L (55-170); CREATININE RESULT 1.01 mg/dL (0.52-1.25); GLUCOSE 81 mg/dL (75-110); POTASSIUM 4.1 mmol/L (3.6-5.0); SODIUM 141.4 mmol/L (137-145); TOTAL PROTEIN 6.6 g/dL (6.3-8.2)
[2017-04-27] MEDS ORDERED: NITROGLYCERIN 2% OINTMENT 1 GM PACKET TP ONE (02:10)
[2017-04-27] MEDS ORDERED: ONDANSETRON HCL INJ/PF 4 MG/2 ML SDV IV ONE (02:19)
--- NOTE | 2017-04-27 02:19 | RADIOLOGY REPORT (SQ) ---
EXAM DESCRIPTION: CHEST SINGLE VIEW COMPLETED DATE/TIME: 04/27/2017 2:00 am REASON FOR STUDY: CHEST PAIN COMPARISON: Chest x-ray 03/23/2017. EXAM PARAMETERS: NUMBER OF VIEWS: One view. TECHNIQUE: Single frontal radiographic view of the chest acquired. RADIATION DOSE: NA LIMITATIONS: None. FINDINGS: LUNGS AND PLEURA: No consolidation, pneumothorax or pleural effusion. MEDIASTINUM AND HILAR STRUCTURES: No masses. Contour normal. HEART AND VASCULAR STRUCTURES: The heart is upper normal limit in size. Normal vasculature. BONES: No acute findings. HARDWARE: None in the chest. IMPRESSION: No acute radiographic finding in the chest. TECHNICAL DOCUMENTATION: JOB ID: [id number] [employer]- All Rights Reserved
[2017-04-27 02:22] LABS: CREATINE KINASE MB 1.15 ng/mL (<4.55)
[2017-04-27 02:24] LABS: TROPONIN I < 0.012 ng/mL
[2017-04-27 04:35] VITALS: BP 122/79
--- NOTE | 2017-04-27 08:00 | EKG REPORT ---
SEVERITY:- ABNORMAL ECG - SINUS RHYTHM PROBABLE LEFT ATRIAL ABNORMALITY ABNRM R PROG, CONSIDER ASMI OR LEAD PLACEMENT : Confirmed by: Vincent Birch MD 27-Apr-2017 08:00:03
== END 2017-04-27 04:36 | disposition home or self-care (01) ==
LOC: ER 23:59
DX: R07.9 Chest pain, unspecified (principal); R25.2 Cramp and spasm; I25.10 Atherosclerotic heart disease of native coronary artery without angina pectoris; I10 Essential (primary) hypertension; I25.2 Old myocardial infarction
CPT/HCPCS: 36415; 71010; 80053; 82550; 82553; 84484; 85025; 93005; 93010; 99285

== ENCOUNTER 2017-05-29 21:43 | Emergency (ER) | payer MEDICAID ==
[2017-05-29 22:10] VITALS: BP 133/88
--- NOTE | 2017-05-30 00:05 | ER Document Report ---
ED Psych Disorder / Suicide - General Chief Complaint: Anxiety Stated Complaint: ANXIETY Time Seen by Provider: 05/30/17 00:03 Notes: The patient is a 42-year-old male, past medical history anxiety, hypothyroidism , CAD, who presents to the ER after he was referred by his primary care physician for adjustments of his medications, including higher doses of his Zoloft and Xanax. Patient said he took 5 mg of Xanax earlier today because he was having increased anxiety about losing his home. He was given the option of going to the emergency room or to [facility] as an outpatient. Patient denies suicidal ideation, homicidal ideation, chest pain, fevers or headache. TRAVEL OUTSIDE OF THE [place] IN LAST 30 DAYS: No - Related Data Allergies/Adverse Reactions: No Known Allergies Allergy (Verified 04/27/17 00:15) Past Medical History - General Information source: Patient - Social History Smoking Status: Former Smoker Family History: Hypertension - Past Medical History Cardiac Medical History: Reports: Hx Coronary Artery Disease, Hx Heart Attack, Hx Hypertension Renal/ Medical History: Denies: Hx Peritoneal Dialysis Past Surgical History: Reports: Hx Cardiac Surgery - stents x2 - Immunizations Immunizations up to date: Yes Hx Diphtheria, Pertussis, Tetanus Vaccination: Yes Review of Systems - Review of Systems Notes: REVIEW OF SYSTEMS: CONSTITUTIONAL: -fevers, -chills EENT: -eye pain, -difficulty swallowing, -nasal congestion CARDIOVASCULAR:-chest pain, -syncope. RESPIRATORY: -cough, -SOB GASTROINTESTINAL: -abdominal pain, - nausea, -vomiting, -diarrhea GENITOURINARY: -dysuria, -hematuria MUSCULOSKELETAL: -back pain, -neck pain SKIN: -rash or skin lesions. HEMATOLOGIC: -easy bruising or bleeding. LYMPHATIC: -swollen, enlarged glands. NEUROLOGICAL: -altered mental status or loss of consciousness, -headache, - neurologic symptoms PSYCHIATRIC: +anxiety, -depression. ALL OTHER SYSTEMS REVIEWED AND NEGATIVE. Physical Exam - Vital signs Vitals: Temp Pulse BP Pulse Ox 97.7 F 62 133/88 H 99 05/29/17 22:08 05/29/17 22:08 05/29/17 22:08 05/29/17 22:08 - Notes Notes: PHYSICAL EXAMINATION: GENERAL: Well-appearing, well-nourished and in no acute distress. HEAD: Atraumatic, normocephalic. EYES: Pupils equal round and reactive to light, extraocular movements intact, sclera anicteric, conjunctiva are normal. ENT: nares patent, oropharynx clear without exudates. Moist mucous membranes. NECK: Normal range of motion, supple without lymphadenopathy LUNGS: Breath sounds clear to auscultation bilaterally and equal. No wheezes rales or rhonchi. HEART: Regular rate and rhythm without murmurs ABDOMEN: Soft, nontender, normoactive bowel sounds. No guarding, no rebound. No masses appreciated. EXTREMITIES: Normal range of motion, no pitting or edema. No cyanosis. NEUROLOGICAL: Cranial nerves grossly intact. Normal speech, normal gait. Normal sensory and motor exams. PSYCH: Anxious mood. No SI or HI. SKIN: Warm, Dry, normal turgor, no rashes or lesions noted. Course - Re-evaluation Re-evalutation: 05/30/17 00:27 Pt appears anxious, but has no medical complaints at this time. He was drinking a Mountain Dew when I walked into the room and I instructed him that this may be contributing to some of his anxiety, so he should probably not drink a soda with high amounts of caffeine. Provided him with a dose of Valium. He agrees to stay overnight to talk with mental health about adjustments in his medications. He denies any SI or HI. No indication for IVC at this time. 05/30/17 02:51 All blood work is back, other than thyroid studies. Spoke to lab and it will be several hours due to the running of water quality tester at this time. Told patient this and he says that he will come back in the morning to talk to mental health about medication adjustments. - Vital Signs Vital signs: Temp Pulse Resp BP Pulse Ox 97.7 F 62 133/88 H 99 05/29/17 22:08 05/29/17 22:08 05/29/17 22:08 05/29/17 22:08 - Laboratory Result Diagrams: 05/30/17 00:35 05/30/17 00:35 Laboratory results interpreted by me: 05/30/17 00:35 Salicylates < 1.0 L Acetaminophen < 10 L - EKG Interpretation by Pr EKG shows normal: Sinus rhythm, [place], Intervals, QRS Complexes, ST-T Waves Rate: Normal Discharge - Discharge Clinical Impression: Anxiety Condition: Stable Disposition: HOME, SELF-CARE Instructions: Anxiety (OM) Additional Instructions: Anxiety The physician feels that some of your health problems are being caused by anxiety. Anxiety affects your health in many ways. Anxiety alone can cause palpitations, sweats, chest pains, abdominal pains, shortness of breath, and headaches. It contributes to ulcer disease, high blood pressure, irritable bowel syndrome, and has been shown to cause flare-ups of many other diseases. Anxiety is not a simple disorder to treat. If the anxiety is due to recent life stresses, you may simply need time to "work through" the changes. If the anxiety is due to an underlying unhappiness with yourself or due to psychiatric disturbance, professional help will be needed. Your physician can refer you for further help if needed. Anti-anxiety medication is occasionally given if the stress is acute or if you are having trouble sleeping. Chronic or frequent use of these medications is not a good idea because the body becomes reliant on it, preventing you from dealing with life's normal stresses. Referrals: HIRAL SHIPLEY FNP [Primary Care Provider] - Follow up as needed
[2017-05-30] MEDS ORDERED: DIAZEPAM 5 MG TABLET PO ONE (00:24)
[2017-05-30 00:44] LABS: APPEARANCE,URINE CLEAR; BILIRUBIN,URINE NEGATIVE (NEGATIVE); COLOR,URINE STRAW; GLUCOSE, URINE NEGATIVE (NEGATIVE); KETONES,URINE NEGATIVE (NEGATIVE); LEUKOCYTE ESTERASE,URINE NEGATIVE (NEGATIVE); NITRITE,URINE NEGATIVE (NEGATIVE); PROTEIN,URINE NEGATIVE (NEGATIVE); URINE SPECIFIC GRAVITY 1.009; UROBILINOGEN,URINE NEGATIVE mg/dL (<2.0)
[2017-05-30 01:15] LABS: ABSOLUTE BASOPHILS # (AUTO) 0.1 10^3/uL (0.0-0.2); ABSOLUTE EOSINOPHILS # (AUTO) 0.3 10^3/uL (0.0-0.6); ABSOLUTE LYMPHOCYTES (AUTO) 2.1 10^3/uL (0.5-4.7); ABSOLUTE MONOCYTES (AUTO) 0.5 10^3/uL (0.1-1.4); ABSOLUTE NEUT (AUTO) 4.6 10^3/uL (1.7-8.2); BASOPHILS % (AUTO) 0.8 % (0-2); EOSINOPHILS % (AUTO) 4.5 % (0-6); HEMATOCRIT 42.8 % (37.9-51.0); HEMOGLOBIN 14.7 g/dL (13.5-17.0); LYMPHOCYTES % (AUTO) 27.3 % (13-45); MEAN CORPUSCULAR HEMOGLOBIN 32.2 pg (27.0-33.4); MEAN CORPUSCULAR HGB CONC 34.3 g/dL (32.0-36.0); MEAN CORPUSCULAR VOLUME 94 fl (80-97); MONOCYTES % (AUTO) 6.3 % (3-13); PLATELET COUNT 296 10^3/uL (150-450); RED BLOOD COUNT 4.56 10^6/uL (4.35-5.55); RED CELL DISTRIBUTION WIDTH 13.2 % (11.5-14.0); SEGMENTED NEUTROPHILS % (AUTO) 61.1 % (42-78); TOTAL CELLS COUNTED % (AUTO) 100 %; WHITE BLOOD COUNT 7.5 10^3/uL (4.0-10.5)
[2017-05-30 01:50] LABS: ALANINE AMINOTRANSFERASE 66 U/L (21-72); ALBUMIN 4.4 g/dL (3.5-5.0); ALKALINE PHOSPHATASE 77 U/L (38-126); ANION GAP 15 (5-19); ASPARTATE AMINO TRANSFERASE 31 U/L (17-59); BILIRUBIN,DIRECT 0.2 mg/dL (0.0-0.4); BILIRUBIN,TOTAL 0.3 mg/dL (0.2-1.3); BLOOD UREA NITROGEN 12 mg/dL (7-20); CALCIUM 9.8 mg/dL (8.4-10.2); CARBON DIOXIDE 25 mmol/L (22-30); CHLORIDE 102 mmol/L (98-107); GLUCOSE 96 mg/dL (75-110); POTASSIUM 4.1 mmol/L (3.6-5.0); SODIUM 141.5 mmol/L (137-145); TOTAL PROTEIN 6.9 g/dL (6.3-8.2)
[2017-05-30 01:51] LABS: ACETAMINOPHEN < 10 ug/mL (10-30); ALCOHOL < 10 mg/dL (NONE DETECTED); SALICYLATE < 1.0 mg/dL (2.0-20.0)
[2017-05-30] MEDS ORDERED: HYDROXYZINE PAMOATE 50 MG CAPSULE PO ONE (02:51)
[2017-05-30 03:18] LABS: FREE T3 3.79 pg/mL (2.77-5.27); FREE T4 (FREE THYROXINE) 0.95 ng/dL (0.78-2.19)
[2017-05-30 03:39] LABS: THYROID STIMULATING HORMONE 5.71 uIU/mL (0.47-4.68)
[2017-05-30 04:11] LABS: URINE AMPHETAMINES SCREEN NEGATIVE; URINE BARBITURATES SCREEN NEGATIVE; URINE BENZODIAZEPINES SCREEN UNCONFIRMED POSITIVE; URINE COCAINE SCREEN NEGATIVE; URINE MARIJUANA (THC) SCREEN NEGATIVE; URINE PHENCYCLIDINE SCREEN NEGATIVE
[2017-05-30 04:22] LABS: URINE METHADONE SCREEN NEGATIVE
--- NOTE | 2017-05-30 12:47 | EKG REPORT ---
SEVERITY:- ABNORMAL ECG - SINUS RHYTHM PROBABLE ANTEROSEPTAL INFARCT, OLD : Confirmed by: Elizabeth José MD 30-May-2017 12:45:56
== END 2017-05-30 03:11 | disposition home or self-care (01) ==
LOC: ER 21:43
DX: F41.9 Anxiety disorder, unspecified (principal); Z79.899 Other long term (current) drug therapy; I10 Essential (primary) hypertension; I25.10 Atherosclerotic heart disease of native coronary artery without angina pectoris; I25.2 Old myocardial infarction; Z87.891 Personal history of nicotine dependence; Z95.5 Presence of coronary angioplasty implant and graft
CPT/HCPCS: 93005; 99283; 36415; 84439; 80307 ×4; 84443; 85025; 80053; 81001; 84481; 93010; J3490 ×2

== ENCOUNTER 2017-05-31 13:34 | Emergency (ER) | payer MEDICAID ==
[2017-05-31 13:40] VITALS: BP 145/99
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
--- NOTE | 2017-05-31 15:19 | PSYCHOLOGICAL NOTE ---
Psych Note - Psych Note Psych Note: Reason for Consult: History of Anxiety, Requesting Psychiatric Medication Change Consents Given: Heavenly Espinoza, spouse, Patient is a 42 year old male who presented to the Emergency Department last night (05/30/2017) with complaints his psychiatric medications were not as effective as they had been. Patient stated he did not want to stay overnight in the hospital to wait for a psychiatric consult and would return today (05/31/2017) . Patient's called earlier and stated the patient was refusing to return to the Emergency Department for evaluation and had taken her car keys, locked himself in the bedroom with them and had gone to sleep. Patient's was advised to contact her local police department if she felt as though she wasn't being allowed to leave the home due to the patient refusing to give her access to her means of transportation. Patient reported his called Adult Protective Services and the police today because he went to sleep in the bedroom and locked the door. Patient reported he spoke to the agencies that came to his house and they all left without further involvement. Patient did not say whether or not he had the car keys in the locked bedroom. Patient stated the argument that started today's problems occurred last night. Patient reported he and his were fighting because he wants a divorce. Patient also reported his has threatened to take his 6 year old son if they get , which cause more conflict in the home. Patient stated his anxiety is "through the roof. Patient stated he has been diagnosed with anxiety and depression. Medically, the patient stated he had a heart attack on March 25, 2016 and had stents placed in his heart. Patient also reported he has an abdominal hernia. Patient reportedly health keeps him from working. Patient reported the lack of work is putting his house in jeopardy and that he had been denied for disability which increase his anxiety. Patient reported being overwhelmed, having racing thoughts, startles easily and is easily irritated. Patient denied suicidal/homicidal ideation, intent or plan. Patient stated he has no family history of mental health issues but also states his family doesn' t go to the doctor very often. Patient stated he was seen in [place] in 2010 for mental health issues and he was diagnosed with bipolar disorder. Patient reported he can not read or write and his filled out the paperwork. Patient stated he was put on Seroquel and it made him "sit on the couch and drool for two days." Patient stated he returned to that provider and the provider indicated his incorrectly filled out the paperwork and he was "not Bipolar." Patient stated Bessy Juarez, his primary care physician, prescribes his current psychiatric medications. He reported he is prescribed Xanax 1 mg, Zoloft 75mg (just upped to 75mg from 50 mg four days ago) and they tried one dose of Klonopin 1mg. Patient stated he feels like his medications are not working. Patient is open to a medication change and a referral to a community provider for ongoing treatment of his mental health issues. Patient denied drug use. Patient denied any problems with alcohol use. He reported he drank approximately six times last year and none of those times resulted in negative consequences. Patient denied need for any alcohol or drug treatment. Patient was alert and oriented to time, place, person and circumstance. Mood was euthymic and affect was congruent. Patient denied auditory and visual hallucinations. Patient did report he occasional saw a flash in his peripheral vision but felt that was vision related and not mental health related. Thought processes were linear, rational and organized. Conversational speech was within normal limits for rate, tone and prosody. Intellectual abilities were estimated within normal limits. Insight, judgment and impulse control were fair. Paranoia was somewhat endorsed as patient reported not liking someone being behind him and not liking being in crowds. Patient stated both situations made him uncomfortable. 1. 296.80 (F31.9) Unspecified Bipolar and Related Disorder Plan/Impression: Patient is psychiatrically clear. Patient does not meet [facility] 122C IVC criteria. Patient denies suicidal/homicidal ideation. Patient is deemed to not be a danger to himself or others. Medication change was recommended. Patient was given referral and resources to outpatient providers in the community to establish ongoing mental health and medication management care. Patient was provided education around physical symptoms of anxiety. Dr. Trinidad was consulted in the care and management of this patient. Physician in agreement with recommendation and disposition.
== END 2017-05-31 15:35 | disposition home or self-care (01) ==
LOC: ER 13:34
DX: F41.9 Anxiety disorder, unspecified (principal); F10.10 Alcohol abuse, uncomplicated; I25.10 Atherosclerotic heart disease of native coronary artery without angina pectoris; I25.2 Old myocardial infarction; I10 Essential (primary) hypertension; Z79.899 Other long term (current) drug therapy; K43.9 Ventral hernia without obstruction or gangrene; Z63.5 Disruption of family by separation and divorce; Z95.5 Presence of coronary angioplasty implant and graft
CPT/HCPCS: 99284

== ENCOUNTER 2017-12-15 12:42 | Emergency (ER) | payer MEDICAID ==
[2017-12-15 13:07] LABS: ABSOLUTE BASOPHILS # (AUTO) 0.1 10^3/uL (0.0-0.2); ABSOLUTE EOSINOPHILS # (AUTO) 0.2 10^3/uL (0.0-0.6); ABSOLUTE LYMPHOCYTES (AUTO) 1.2 10^3/uL (0.5-4.7); ABSOLUTE MONOCYTES (AUTO) 0.5 10^3/uL (0.1-1.4); ABSOLUTE NEUT (AUTO) 4.6 10^3/uL (1.7-8.2); BASOPHILS % (AUTO) 0.8 % (0-2); EOSINOPHILS % (AUTO) 2.7 % (0-6); HEMATOCRIT 51.5 % (37.9-51.0); LYMPHOCYTES % (AUTO) 18.3 % (13-45); MEAN CORPUSCULAR HEMOGLOBIN 32.2 pg (27.0-33.4); MEAN CORPUSCULAR HGB CONC 34.9 g/dL (32.0-36.0); MEAN CORPUSCULAR VOLUME 92 fl (80-97); MONOCYTES % (AUTO) 7.5 % (3-13); PLATELET COUNT 232 10^3/uL (150-450); RED BLOOD COUNT 5.58 10^6/uL (4.35-5.55); RED CELL DISTRIBUTION WIDTH 13.2 % (11.5-14.0); SEGMENTED NEUTROPHILS % (AUTO) 70.7 % (42-78); TOTAL CELLS COUNTED % (AUTO) 100 %; WHITE BLOOD COUNT 6.6 10^3/uL (4.0-10.5)
--- NOTE | 2017-12-15 13:09 | RADIOLOGY REPORT (SQ) ---
EXAM DESCRIPTION: CT HEAD WITHOUT COMPLETED DATE/TIME: 12/15/2017 12:55 pm REASON FOR STUDY: slurred speech COMPARISON: None. TECHNIQUE: Axial images acquired through the brain without intravenous contrast. Images reviewed wi th bone, brain and subdural windows. Additional sagittal and coronal reconstructions were generated. Images stored on PACS. All CT scanners at this facility use dose modulation, iterative reconstruction, and/or weight based d osing when appropriate to reduce radiation dose to as low as reasonably achievable (ALARA). [facility]: Dose Right [facility]: CareDose [facility]: Dose Right [facility]: Teradose 4D [facility]: [employer] RADIATION DOSE: CT Rad equipment meets quality standard of care and radiation dose reduction techniq ues were employed. CTDIvol: 48.7 mGy. DLP: 980 mGy-cm. mGy. LIMITATIONS: None. FINDINGS: VENTRICLES: Normal size and contour. CEREBRUM: No masses. No hemorrhage. No midline shift. No evidence for acute infarction. Normal gra y/white matter differentiation. No areas of low density in the white matter. CEREBELLUM: No masses. No hemorrhage. No alteration of density. No evidence for acute infarction. EXTRAAXIAL SPACES: No fluid collections. No masses. ORBITS AND GLOBE: No intra- or extraconal masses. Normal contour of globe without masses. CALVARIUM: No fracture. PARANASAL SINUSES: No fluid or mucosal thickening. SOFT TISSUES: No mass or hematoma. OTHER: No other significant finding. IMPRESSION: NORMAL BRAIN CT WITHOUT CONTRAST. EVIDENCE OF ACUTE STROKE: NO. COMMENT: Quality ID # 436: Final reports with documentation of one or more dose reduction techniques (e.g., Automated exposure control, adjustment of the mA and/or kV according to patient size, use of iterative reconstruction technique) TECHNICAL DOCUMENTATION: JOB ID: [id number] [employer]- All Rights Reserved Reading location - IP/workstation name: [email or web address]
[2017-12-15 13:12] LABS: INTERNATIONAL RATION (INR) 0.87; PROTHROMBIN TIME 12.3 SEC (11.4-15.4)
[2017-12-15 13:13] LABS: PARTIAL THROMBOPLASTIN TIME 27.2 SEC (23.5-35.8)
[2017-12-15 13:26] LABS: ALANINE AMINOTRANSFERASE 41 U/L (21-72); ALBUMIN 4.7 g/dL (3.5-5.0); ALKALINE PHOSPHATASE 89 U/L (38-126); ANION GAP 13 (5-19); ASPARTATE AMINO TRANSFERASE 30 U/L (17-59); BILIRUBIN,DIRECT 0.3 mg/dL (0.0-0.4); BILIRUBIN,TOTAL 0.6 mg/dL (0.2-1.3); BLOOD UREA NITROGEN 7 mg/dL (7-20); CALCIUM 9.9 mg/dL (8.4-10.2); CARBON DIOXIDE 24 mmol/L (22-30); CHLORIDE 107 mmol/L (98-107); CREATINE KINASE 83 U/L (55-170); GLUCOSE 94 mg/dL (75-110); POTASSIUM 4.4 mmol/L (3.6-5.0); SODIUM 144.3 mmol/L (137-145); TOTAL PROTEIN 7.7 g/dL (6.3-8.2)
[2017-12-15 13:38] LABS: CREATINE KINASE MB 0.59 ng/mL (<4.55)
[2017-12-15 13:40] LABS: TROPONIN I < 0.012 ng/mL
--- NOTE | 2017-12-15 13:55 | RADIOLOGY REPORT (SQ) ---
EXAM DESCRIPTION: CHEST SINGLE VIEW COMPLETED DATE/TIME: 12/15/2017 1:46 pm REASON FOR STUDY: bed 1 stroke alert COMPARISON: CHEST FILMS 04/27/2017, 03/23/2017, 09/08/2016 EXAM PARAMETERS: NUMBER OF VIEWS: One view. TECHNIQUE: Single frontal radiographic view of the chest acquired. RADIATION DOSE: NA LIMITATIONS: None. FINDINGS: LUNGS AND PLEURA: No opacities, masses or pneumothorax. No pleural effusion. MEDIASTINUM AND HILAR STRUCTURES: No masses. Contour normal. HEART AND VASCULAR STRUCTURES: Heart normal in size. Normal vasculature. BONES: No acute findings. HARDWARE: None in the chest. OTHER: No other significant finding. IMPRESSION: NO ACUTE RADIOGRAPHIC FINDING IN THE CHEST. TECHNICAL DOCUMENTATION: JOB ID: [id number] [employer]- All Rights Reserved Reading location - IP/workstation name: [email or web address]
--- NOTE | 2017-12-15 15:32 | ER Document Report ---
ED Neuro Symptoms/Deficit - General Chief Complaint: S/S of Possible Stroke Stated Complaint: SLURRED SPEECH Time Seen by Provider: 12/15/17 13:06 Notes: Patient said he went to drive to the store and return and while doing so, he developed "tunnel vision" and tried to talk and was not able to do so. He got back home and tried to speak with his mother and she says that she was not able to understand what the patient was saying. Patient says he has never had that happen before. It lasted about 15-20 minutes and then went away. Patient did note some headache at the top of his head. Patient also felt dizzy, but that is not unusual for him. Now, patient says he is back to feeling normal. Patient had not eaten anything today, but did not feel like his blood sugar had dropped. Patient has a history of cardiovascular disease, having a heart attack in February 2016, but never had a stroke. He does continue to smoke about three quarters of a pack of cigarettes a day. Has been told by his english as a second language instructor that he has angina. TRAVEL OUTSIDE OF THE [place] IN LAST 30 DAYS: Yes - Related Data Allergies/Adverse Reactions: No Known Allergies Allergy (Verified 12/15/17 12:43) Home Medications: Patient states he takes Lisinopril, Aspirin, Oxycodone 15mg, and a new medication that he is unsure of the name. Past Medical History - Social History Smoking Status: Current Every Day Smoker - Three quarters pack a day Chew tobacco use (# tins/day): No Frequency of alcohol use: Occasional Drug Abuse: None Family History: Reviewed & Not Pertinent, Hypertension Patient has suicidal ideation: No Patient has homicidal ideation: No - Past Medical History Cardiac Medical History: Reports: Hx Coronary Artery Disease, Hx Heart Attack - 2016, Hx Hypercholesterolemia, Hx Hypertension Pulmonary Medical History: Reports: Hx COPD Neurological Medical History: Denies: Hx Cerebrovascular Accident, Hx Seizures Endocrine Medical History: Denies: Hx Diabetes Mellitus Type 2 GI Medical History: Reports: Hx Irritable Bowel Psychiatric Medical History: Reports: Hx Anxiety Past Surgical History: Reports: Hx Cardiac Catheterization, Hx Cardiac Surgery - stents x2, Hx Coronary Stent - x2 - Immunizations Immunizations up to date: Yes Hx Diphtheria, Pertussis, Tetanus Vaccination: Yes Review of Systems - Review of Systems Notes: REVIEW OF SYSTEMS: CONSTITUTIONAL : Denies fever. EENT: Denies eye, ear, nose or mouth or throat pain or other symptoms. CARDIOVASCULAR: Denies chest pain. RESPIRATORY: Denies cough, chest congestion, or shortness of breath. GASTROINTESTINAL: Denies abdominal pain or nausea, vomiting, or diarrhea. GENITOURINARY: Denies difficulty or painful urinating, urinary frequency, blood in urine. MUSCULOSKELETAL: Denies back or neck pain. Denies joint pain or swelling. SKIN: Denies rash or skin lesions. NEUROLOGICAL: See H&P. Denies LOC or altered mental status. Headache top of head. Denies sensory loss or motor deficits. ALL OTHER SYSTEMS REVIEWED AND NEGATIVE. Physical Exam - Vital signs Vitals: Resp Pulse Ox 12 98 12/15/17 12:58 12/15/17 12:58 Interpretation: Normal - Notes Notes: PHYSICAL EXAMINATION: GENERAL: Well-appearing, in no acute distress. Speech sounds normal and understandable. HEAD: Atraumatic, normocephalic. EYES: Pupils equal round and reactive to light, extraocular movements intact. ENT: oropharynx clear without exudates. Moist mucous membranes. NECK: Normal range of motion, supple. No carotid bruits heard. LUNGS: Breath sounds clear and equal bilaterally. HEART: Regular rate and rhythm without murmurs. ABDOMEN: Soft, nontender. No guarding or rebound. No masses. BACK: No tenderness throughout entire back. EXTREMITIES: Normal range of motion without pain. NEUROLOGICAL: Normal speech, normal gait. Normal sensory, motor, and reflex exams. Awake, alert, and oriented x3. Cranial nerves normal. PSYCH: Normal mood, normal affect. SKIN: Warm, dry, no rashes. Course - Re-evaluation Re-evalutation: 12/15/17 15:[address] Can, local shift supervisor rn. Went over the patient's hemoglobin of 18. He does not feel that that level of hemoglobin should be accounting for patient having a significant neurologic or cardiovascular event. Had lengthy discussion with patient about stopping smoking and elevated hemoglobin and hematocrit that he now has. I do not know if the patient had a true TIA, hypoglycemic episode, anxiety episode, or exactly what caused the patient's dysarthria. Patient is completely normal at this time and his workup is essentially normal except for the elevated hemoglobin and hematocrit. Patient does not want to be admitted to the hospital as he does not feel anything will be done for him, and that is probably the case. He already takes a baby aspirin daily. I have referred him to see Dr. Can in follow-up. - Vital Signs Vital signs: Temp Pulse Resp BP Pulse Ox 98.0 F 66 15 113/84 96 12/15/17 13:09 12/15/17 15:00 12/15/17 15:01 12/15/17 15:01 12/15/17 15:01 - Laboratory Result Diagrams: 12/15/17 12:55 12/15/17 12:55 Laboratory results interpreted by me: 12/15/17 12:55 RBC 5.58 H Hgb 18.0 H Hct 51.5 H - Diagnostic Test Radiology reviewed: Image reviewed, Reports reviewed - CT scan of the brain normal. Discharge - Discharge Clinical Impression: TIA (transient ischemic attack), Dysarthria, Polycythemia Condition: Stable Disposition: HOME, SELF-CARE Additional Instructions: Transient Ischemic Attack You have been diagnosed as having a transient ischemic attack (TIA). This is caused when an artery to the brain has been temporarily blocked. It can result in visual changes, difficulty with speech, and weakness or numbness -- usually limited to one side of the body. TIA symptoms usually resolve within an hour, but a TIA is serious, as it may be a warning sign of an impending stroke. To prevent further episodes, you may be placed on medication to reduce the possibility that your platelets will aggregate and form blood clots in the arteries that supply the brain. Usually, this includes aspirin and sometimes other platelet inhibitors. Further evaluation is often necessary to make an exact diagnosis as to where these blood clots are originating, and if anything else needs to be done to correct the problem. Call the physician or go to the emergency room if episodes occur with increasing frequency. If symptoms occur that don't go away within a few minutes , call 911. Polycythemia We have found a higher than normal count of red blood cells. When the blood is thick with extra red cells, we call it "polycythemia." Blood cells are created in your bone marrow. In polycythemia, the marrow is over-active, making extra blood cells. Polycythemia can be a reaction to low oxygen in your blood, as occurs with chronic bronchitis or sleep apnea. Sometimes no clear cause is found. Polycythemia can be dangerous, because the thickened blood clots more easily. There's a higher risk of stroke, heart attack, and blood clots. The best treatment for polycythemia is to treat the underlying cause. For example, treating lung disease to increase the blood oxygen may lower the count of red blood cells. If it's not possible to eliminate the cause of polycythemia , you may be treated by removing some of your blood from time to time. This lowers the count of red cells and makes the blood thinner. Call your doctor or return if you have chest pain or new shortness of breath, or symptoms of a stroke such as memory problems, severe headache, vomiting, severe dizziness, weakness or numbness, double vision, a seizure, or problems with balance or coordination. Stop Smoking You should stop smoking. The tar and chemicals in cigarette smoke are harmful. Smoking has been shown to cause: Emphysema and chronic bronchitis Lung cancer Cancer of the mouth, larynx, stomach, and pancreas Heart disease and stroke Stillbirths and miscarriage Premature aging In addition, smoking increases the chances of respiratory infections and ear infections in children of smokers, and increases the risk of cancer in persons exposed to second-hand smoke. Classes are available to help you stop smoking. If you are serious about wanting to quit, we can help arrange this therapy for you, or you can contact the local lung or cancer association. Aspirin Aspirin has been shown to have a beneficial effect on blood circulation by reducing the clotting effect of platelets in the blood. These beneficial effects can be achieved by taking just a single baby (62.5 mg) aspirin a day. It is recommended that any person over the age of forty take a single baby aspirin every day for heart and brain circulation, unless you are allergic to aspirin or have some significant bleeding disorder. It is strongly recommended that people who have proven cardiac or blood circulation disturbances should take a baby aspirin every day. Follow-up with . Return for reevaluation if you have another food or any other new or concerning symptoms. FOLLOW-UP CARE: If you have been referred to a physician for follow-up care, call the physician s office for an appointment as you were instructed or within the next two days. If you experience worsening or a significant change in your symptoms, notify the physician immediately or return to the Emergency Department at any time for re-evaluation. Referrals: GEORGI CAN MD [ACTIVE STAFF] - Follow up in 1 week
[2017-12-15 16:11] VITALS: BP 125/96
--- NOTE | 2017-12-15 22:03 | EKG REPORT ---
SEVERITY:- ABNORMAL ECG - SINUS RHYTHM PROBABLE LEFT ATRIAL ABNORMALITY ANTERIOR INFARCT, AGE INDETERMINATE : Confirmed by: Eugenia Chin 15-Dec-2017 22:02:15
== END 2017-12-15 16:05 | disposition home or self-care (01) ==
LOC: ER 12:42
DX: G45.9 Transient cerebral ischemic attack, unspecified (principal); R47.1 Dysarthria and anarthria; D75.1 Secondary polycythemia; R42 Dizziness and giddiness; F17.210 Nicotine dependence, cigarettes, uncomplicated; I25.2 Old myocardial infarction
CPT/HCPCS: 36415; 70450; 71045; 80053; 82550; 82553; 84484; 85025; 85610; 85730; 93005; 93010; 99285

== ENCOUNTER 2018-10-22 15:16 | Emergency (ER) | payer SELFPAY ==
[2018-10-22] MEDS ORDERED: ASPIRIN 81 MG TABLET, CHEWABLE PO ONE (15:20)
--- NOTE | 2018-10-22 15:55 | RADIOLOGY REPORT (SQ) ---
EXAM DESCRIPTION: CHEST SINGLE VIEW COMPLETED DATE/TIME: 10/22/2018 3:47 pm REASON FOR STUDY: chest pain COMPARISON: 09/08/2016 EXAM PARAMETERS: NUMBER OF VIEWS: One view. TECHNIQUE: Single frontal radiographic view of the chest acquired. RADIATION DOSE: NA LIMITATIONS: None. FINDINGS: LUNGS AND PLEURA: No opacities, masses or pneumothorax. No pleural effusion. MEDIASTINUM AND HILAR STRUCTURES: No masses. Contour normal. HEART AND VASCULAR STRUCTURES: Heart normal in size. Normal vasculature. BONES: No acute findings. HARDWARE: None in the chest. OTHER: No other significant finding. IMPRESSION: No acute abnormality of the lungs. TECHNICAL DOCUMENTATION: JOB ID: [id number] [employer]- All Rights Reserved Reading location - IP/workstation name: [email or web address]
[2018-10-22 16:11] LABS: ABSOLUTE BASOPHILS # (AUTO) 0.1 10^3/uL (0.0-0.2); ABSOLUTE EOSINOPHILS # (AUTO) 0.2 10^3/uL (0.0-0.6); ABSOLUTE LYMPHOCYTES (AUTO) 1.6 10^3/uL (0.5-4.7); ABSOLUTE MONOCYTES (AUTO) 0.5 10^3/uL (0.1-1.4); ABSOLUTE NEUT (AUTO) 7.2 10^3/uL (1.7-8.2); BASOPHILS % (AUTO) 0.8 % (0-2); EOSINOPHILS % (AUTO) 1.9 % (0-6); HEMATOCRIT 46.6 % (37.9-51.0); HEMOGLOBIN 16.4 g/dL (13.5-17.0); LYMPHOCYTES % (AUTO) 16.8 % (13-45); MEAN CORPUSCULAR HEMOGLOBIN 32.3 pg (27.0-33.4); MEAN CORPUSCULAR HGB CONC 35.1 g/dL (32.0-36.0); MEAN CORPUSCULAR VOLUME 92 fl (80-97); MONOCYTES % (AUTO) 5.6 % (3-13); PLATELET COUNT 208 10^3/uL (150-450); RED BLOOD COUNT 5.08 10^6/uL (4.35-5.55); RED CELL DISTRIBUTION WIDTH 13.4 % (11.5-14.0); SEGMENTED NEUTROPHILS % (AUTO) 74.9 % (42-78); TOTAL CELLS COUNTED % (AUTO) 100 %; WHITE BLOOD COUNT 9.6 10^3/uL (4.0-10.5)
[2018-10-22 16:36] LABS: ALANINE AMINOTRANSFERASE 35 U/L (21-72); ALBUMIN 4.6 g/dL (3.5-5.0); ALKALINE PHOSPHATASE 76 U/L (38-126); ANION GAP 13 (5-19); ASPARTATE AMINO TRANSFERASE 30 U/L (17-59); BILIRUBIN,DIRECT 0.3 mg/dL (0.0-0.4); BILIRUBIN,TOTAL 0.5 mg/dL (0.2-1.3); BLOOD UREA NITROGEN 12 mg/dL (7-20); CALCIUM 9.7 mg/dL (8.4-10.2); CARBON DIOXIDE 25 mmol/L (22-30); CHLORIDE 104 mmol/L (98-107); CREATINE KINASE 86 U/L (55-170); GLUCOSE 111 mg/dL (75-110); POTASSIUM 4.7 mmol/L (3.6-5.0); SODIUM 142.2 mmol/L (137-145); TOTAL PROTEIN 7.1 g/dL (6.3-8.2)
[2018-10-22] MEDS ORDERED: NITROGLYCERIN 2% OINTMENT 1 GM PACKET TP ONE (16:45)
[2018-10-22 16:46] LABS: CREATINE KINASE MB 0.46 ng/mL (<4.55)
[2018-10-22 16:51] LABS: TROPONIN I < 0.012 ng/mL
--- NOTE | 2018-10-22 17:16 | RADIOLOGY REPORT (SQ) ---
EXAM DESCRIPTION: CT HEAD WITHOUT COMPLETED DATE/TIME: 10/22/2018 5:01 pm REASON FOR STUDY: dizzy, weakness, numbness COMPARISON: 12/15/2017 TECHNIQUE: Axial images acquired through the brain without intravenous contrast. Images reviewed wi th bone, brain and subdural windows. Additional sagittal and coronal reconstructions were generated. Images stored on PACS. All CT scanners at this facility use dose modulation, iterative reconstruction, and/or weight based d osing when appropriate to reduce radiation dose to as low as reasonably achievable (ALARA). [facility]: Dose Right [facility]: CareDose [facility]: Dose Right [facility]: Teradose 4D [facility]: [employer] RADIATION DOSE: CT Rad equipment meets quality standard of care and radiation dose reduction techniq ues were employed. CTDIvol: 53.2 mGy. DLP: 991 mGy-cm. mGy. LIMITATIONS: None. FINDINGS: VENTRICLES: Normal size and contour. CEREBRUM: No masses. No hemorrhage. No midline shift. No evidence for acute infarction. Normal gra y/white matter differentiation. No areas of low density in the white matter. CEREBELLUM: No masses. No hemorrhage. No alteration of density. No evidence for acute infarction. EXTRAAXIAL SPACES: No fluid collections. No masses. ORBITS AND GLOBE: No intra- or extraconal masses. Normal contour of globe without masses. CALVARIUM: No fracture. PARANASAL SINUSES: No fluid or mucosal thickening. SOFT TISSUES: No mass or hematoma. OTHER: No other significant finding. IMPRESSION: No acute intracranial pathology. EVIDENCE OF ACUTE STROKE: NO. COMMENT: Quality ID # [id number]: Final reports with documentation of one or more dose reduction techniques (e.g., Automated exposure control, adjustment of the mA and/or kV according to patient size, use of iterative reconstruction technique) TECHNICAL DOCUMENTATION: JOB ID: [id number] [employer]- All Rights Reserved Reading location - IP/workstation name: [email or web address]
--- NOTE | 2018-10-22 17:47 | ER Document Report ---
ED Cardiac - General Chief Complaint: Chest Pain Stated Complaint: CHEST PAIN Time Seen by Provider: 10/22/18 15:29 Notes: Patient is a 43-year-old male presents to the emergency department for multiple complaints. Patient states he woke up this morning felt dizzy, weakness in bilateral hands and feet that were intermittently numb. Also complains of generalized left arm pain, diaphoresis, generalized headache, shortness of breath, chest pressure in the center of his chest 8 out of 10. Patient states he also vomited upwards of 10 times. Patient states he took 4 sublingual nitroglycerin prior to arrival to the emergency room and his chest pressure is now a 2 out of 10. Patient's denying any diarrhea or any fever. Patient states he no longer feels nauseated at this time but continues with a 2 out of 10 chest pressure and "weakness in my arms". Past medical history: Coronary artery disease with stent placement, hypertension, TIA Medications: Nitroglycerin Allergies: None Patient states he does smoke 1 pack of cigarettes a day. Patient states he is supposed to be on other medication regimens but he does not take them because he feels as though he "does not need them." TRAVEL OUTSIDE OF THE [place] IN LAST 30 DAYS: No - Related Data Allergies/Adverse Reactions: No Known Allergies Allergy (Verified 12/15/17 12:43) Past Medical History - General Information source: Patient - Social History Smoking Status: Current Every Day Smoker Frequency of alcohol use: Social Drug Abuse: None Family History: Reviewed & Not Pertinent, Hypertension Patient has suicidal ideation: No Patient has homicidal ideation: No - Past Medical History Cardiac Medical History: Reports: Hx Coronary Artery Disease, Hx Heart Attack, Hx Hypercholesterolemia, Hx Hypertension Pulmonary Medical History: Reports: Hx COPD Neurological Medical History: Denies: Hx Cerebrovascular Accident, Hx Seizures Endocrine Medical History: Denies: Hx Diabetes Mellitus Type 2 Renal/ Medical History: Denies: Hx Peritoneal Dialysis GI Medical History: Reports: Hx Irritable Bowel Psychiatric Medical History: Reports: Hx Anxiety Past Surgical History: Reports: Hx Cardiac Catheterization, Hx Cardiac Surgery - stents x2, Hx Coronary Stent - x2 - Immunizations Immunizations up to date: Yes Hx Diphtheria, Pertussis, Tetanus Vaccination: Yes Review of Systems - Review of Systems Constitutional: See HPI EENT: See HPI Cardiovascular: See HPI Respiratory: See HPI Gastrointestinal: See HPI Genitourinary: No symptoms reported Male Genitourinary: No symptoms reported Musculoskeletal: No symptoms reported Skin: No symptoms reported Hematologic/Lymphatic: No symptoms reported Neurological/Psychological: See HPI Physical Exam - Vital signs Vitals: Temp Pulse Resp BP Pulse Ox 97.4 F 62 20 119/90 H 99 10/22/18 15:19 10/22/18 15:19 10/22/18 15:19 10/22/18 15:19 10/22/18 15:19 - Notes Notes: GENERAL: Alert, interacts well. No acute distress. HEAD: Normocephalic, atraumatic. EYES: Pupils equal, round, and reactive to light. Extraocular movements intact. ENT: Oral mucosa moist, tongue midline. NECK: Full range of motion. Supple. Trachea midline. LUNGS: Clear to auscultation bilaterally, no wheezes, rales, or rhonchi. No respiratory distress. HEART: Regular rate and rhythm. No murmur ABDOMEN: Soft, non-tender. Non-distended. Bowel sounds present in all 4 quadrants. EXTREMITIES: Moves all 4 extremities spontaneously. No edema, normal radial and dorsalis pedis pulses bilaterally. No cyanosis. 5 out of 5 strength all 4 extremities. BACK: no cervical, thoracic, lumbar midline tenderness. No saddle anesthesia, normal distal neurovascular exam. NEUROLOGICAL: Alert and oriented x3. Normal speech. cranial nerves II through XII grossly intact. [place] CVA scale 0 PSYCH: Normal affect, normal mood. SKIN: Warm, dry, normal turgor. No rashes or lesions noted. Course - Re-evaluation Re-evalutation: 10/22/18 17:42 Patient continues with 1 out of 10 chest pain in the center of his chest despite nitroglycerin paste administered. Discussed at length with patient my recommendation for admission. Initial troponin was negative at this time but I cannot rule out a cardiac event. Patient voices understanding and states he is wants to sign out AGAINST MEDICAL ADVICE. States he will drive himself to [facility] where his cardiac catheterization and stent was placed. He is refusing admission to this facility or transfer via EMS to [facility]. Discussed at length again with patient and Yolis MCCALLUM at bedside my recommendations for admission and patient continues to refuse. AGAINST MEDICAL ADVICE paperwork signed. Witnessed by myself and Yolis MCCALLUM. EKG shows a sinus rhythm at 61, QTc 456. - Vital Signs Vital signs: Temp Pulse Resp BP Pulse Ox 97.4 F 62 14 128/88 H 97 10/22/18 15:19 10/22/18 15:19 10/22/18 17:19 10/22/18 17:19 10/22/18 17:19 - Laboratory Result Diagrams: 10/22/18 15:40 10/22/18 15:40 Laboratory results interpreted by me: 10/22/18 15:40 Glucose 111 H Discharge - Discharge Clinical Impression: Left against medical advice Chest pain Qualifiers: Chest pain type: unspecified Qualified Code(s): R07.9 - Chest pain, unspecified Condition: Serious Disposition: AGAINST MEDICAL ADVICE Additional Instructions: As we discussed you are leaving this emergency department AGAINST MEDICAL ADVICE. As you have discussed you will drive yourself to [facility] for continued care. You should do that or return to this emergency department for any other concerns.
[2018-10-22 17:57] VITALS: BP 128/88
--- NOTE | 2018-10-22 18:27 | EKG REPORT ---
SEVERITY:- ABNORMAL ECG - SINUS RHYTHM PROBABLE LEFT ATRIAL ABNORMALITY PROBABLE ANTEROSEPTAL INFARCT, OLD : Confirmed by: Eugenia Chin 22-Oct-2018 18:27:11
== END 2018-10-22 17:57 | disposition left against medical advice (07) ==
LOC: ER 15:16
DX: R07.9 Chest pain, unspecified (principal); R42 Dizziness and giddiness; M62.81 Muscle weakness (generalized); R20.0 Anesthesia of skin; R11.10 Vomiting, unspecified; I25.10 Atherosclerotic heart disease of native coronary artery without angina pectoris; I10 Essential (primary) hypertension; F17.210 Nicotine dependence, cigarettes, uncomplicated; J44.9 Chronic obstructive pulmonary disease, unspecified
CPT/HCPCS: 36415; 70450; 71045; 80053; 82550; 82553; 84484; 85025; 93005; 93010; 99284

== ENCOUNTER 2018-10-30 11:48 | Emergency (ER) | payer SELFPAY ==
[2018-10-30 12:02] VITALS: BP 144/95
--- NOTE | 2018-10-30 17:35 | EKG REPORT ---
SEVERITY:- ABNORMAL ECG - SINUS RHYTHM PROBABLE LEFT ATRIAL ABNORMALITY ANTERIOR INFARCT, AGE INDETERMINATE : Confirmed by: Elizabeth José MD 30-Oct-2018 17:33:46
== END 2018-10-30 12:38 | disposition left against medical advice (07) ==
LOC: ER 11:48
DX: Z53.21 Procedure and treatment not carried out due to patient leaving prior to being seen by health care provider (principal)
CPT/HCPCS: 93005; 93010

== ENCOUNTER 2019-06-19 08:21 | Observation (INO) | payer SELFPAY ==
[2019-06-19] MEDS ORDERED: ASPIRIN 81 MG TABLET, CHEWABLE PO ONE (09:07)
--- NOTE | 2019-06-19 09:10 | ER Document Report ---
ED Medical Screen (RME) - General Chief Complaint: Chest Pain Stated Complaint: CHEST PAIN Time Seen by Provider: 06/19/19 09:07 Mode of Arrival: Ambulatory Information source: Patient Notes: 44-year-old male presented to ED for complaint of right-sided chest pain that is getting worse it is intermittent squeezing has a history of 7 MIs. He also has a history of coronary artery disease high blood pressure cholesterol TIA IBS coronary artery disease and arthritis. 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 Patient is alert oriented respirations regular nonlabored speaking in full sentences walks with even steady gait. I have greeted and performed a rapid initial assessment of this patient. A comprehensive ED assessment and evaluation of the patient, analysis of test results and completion of medical decision making process will be conducted by an additional ED providers. TRAVEL OUTSIDE OF THE [place] IN LAST 30 DAYS: No - Related Data Allergies/Adverse Reactions: No Known Allergies Allergy (Verified 12/15/17 12:43) Home Medications: lisinopril, metoprolol, plavix, asa Past Medical History - Past Medical History Cardiac Medical History: Reports: Hx Coronary Artery Disease, Hx Heart Attack, Hx Hypercholesterolemia, Hx Hypertension Pulmonary Medical History: Reports: Hx COPD Neurological Medical History: Denies: Hx Cerebrovascular Accident, Hx Seizures Endocrine Medical History: Denies: Hx Diabetes Mellitus Type 2 Renal/ Medical History: Denies: Hx Peritoneal Dialysis GI Medical History: Reports: Hx Irritable Bowel Psychiatric Medical History: Reports: Hx Anxiety Past Surgical History: Reports: Hx Cardiac Catheterization, Hx Cardiac Surgery - stents x2, Hx Coronary Stent - x2 - Immunizations Immunizations up to date: Yes Hx Diphtheria, Pertussis, Tetanus Vaccination: Yes Physical Exam - Vital signs Vitals: Temp Pulse Resp BP Pulse Ox 97.7 F 70 16 148/85 H 99 06/19/19 08:33 06/19/19 08:33 06/19/19 08:33 06/19/19 08:33 06/19/19 08:33 Course - Vital Signs Vital signs: Temp Pulse Resp BP Pulse Ox 97.7 F 70 16 148/85 H 99 06/19/19 08:33 06/19/19 08:33 06/19/19 08:33 06/19/19 08:33 06/19/19 08:33
--- NOTE | 2019-06-19 09:42 | RADIOLOGY REPORT (SQ) ---
EXAM DESCRIPTION: CHEST 2 VIEWS COMPLETED DATE/TIME: 06/19/2019 9:28 am REASON FOR STUDY: chest pain COMPARISON: AP view of the chest from 10/22/2018 EXAM PARAMETERS: NUMBER OF VIEWS: two views TECHNIQUE: PA and lateral views of the chest were obtained. RADIATION DOSE: NA LIMITATIONS: none FINDINGS: LUNGS AND PLEURA: No consolidation, pleural effusion or pneumothorax. MEDIASTINUM AND HILAR STRUCTURES: No mediastinal or hilar contour abnormality. HEART AND VASCULAR STRUCTURES: The cardiac silhouette and pulmonary vasculature are within normal cueva its. BONES: No acute findings. HARDWARE: None in the chest. OTHER: No other finding. IMPRESSION: No acute cardiopulmonary process. TECHNICAL DOCUMENTATION: JOB ID: [id number] [employer]- All Rights Reserved Reading location - IP/workstation name: [email or web address]
--- NOTE | 2019-06-19 10:16 | RADIOLOGY REPORT (SQ) ---
EXAM DESCRIPTION: U/S ABDOMEN LIMITED W/O DOP COMPLETED DATE/TIME: 06/19/2019 9:59 am REASON FOR STUDY: right chest pain COMPARISON: Ultrasound of the abdomen from 01/20/2017. TECHNIQUE: Dynamic and static grayscale images acquired of the abdomen and recorded on PACS. Additio elbert selected color Doppler and spectral images recorded. LIMITATIONS: None. FINDINGS: PANCREAS: Unable to visualize the pancreas. LIVER: The echogenicity of the hepatic parenchyma is increased compared to that of the adjacent renal parenchyma. LIVER VASCULATURE: Hepatopetal flow within the portal veins. GALLBLADDER: The gallbladder wall measures 2.6 mm in diameter. There is no cholelithiasis, sludge or pericholecystic fluid. ULTRASOUND-DETECTED DELEON'S SIGN: Negative. INTRAHEPATIC DUCTS AND COMMON DUCT: The common bile duct measures 3.5 mm in diameter. The intrahepat ic bile ducts are normal in caliber. AORTA: No aneurysm. RIGHT KIDNEY: The right kidney measures 11 cm in length. There is no hydronephrosis. PERITONEAL AND RIGHT PLEURAL SPACE: No ascites or effusions. OTHER: No other findings. IMPRESSION: 1. Suspected hepatic steatosis. 2. Normal appearance of the gallbladder and right kidney. 3. Nonvisualization of the pancreas. TECHNICAL DOCUMENTATION: JOB ID: [id number] [employer]- All Rights Reserved Reading location - IP/workstation name: [email or web address]
[2019-06-19 10:47] LABS: ABSOLUTE BASOPHILS # (AUTO) 0.1 10^3/uL (0.0-0.2); ABSOLUTE EOSINOPHILS # (AUTO) 0.2 10^3/uL (0.0-0.6); ABSOLUTE LYMPHOCYTES (AUTO) 1.7 10^3/uL (0.5-4.7); ABSOLUTE MONOCYTES (AUTO) 0.6 10^3/uL (0.1-1.4); ABSOLUTE NEUT (AUTO) 5.4 10^3/uL (1.7-8.2); BASOPHILS % (AUTO) 1.1 % (0-2); HEMATOCRIT 49.3 % (37.9-51.0); HEMOGLOBIN 17.4 g/dL (13.5-17.0); LYMPHOCYTES % (AUTO) 21.2 % (13-45); MEAN CORPUSCULAR HEMOGLOBIN 33.1 pg (27.0-33.4); MEAN CORPUSCULAR HGB CONC 35.2 g/dL (32.0-36.0); MEAN CORPUSCULAR VOLUME 94 fl (80-97); MONOCYTES % (AUTO) 7.9 % (3-13); PLATELET COUNT 239 10^3/uL (150-450); RED BLOOD COUNT 5.25 10^6/uL (4.35-5.55); SEGMENTED NEUTROPHILS % (AUTO) 66.8 % (42-78); TOTAL CELLS COUNTED % (AUTO) 100 %
[2019-06-19 11:02] LABS: ALBUMIN 4.8 g/dL (3.5-5.0); ALKALINE PHOSPHATASE 78 U/L (38-126); ANION GAP 10 (5-19); ASPARTATE AMINO TRANSFERASE 34 U/L (17-59); BILIRUBIN,DIRECT 0.4 mg/dL (0.0-0.4); BILIRUBIN,TOTAL 0.5 mg/dL (0.2-1.3); BLOOD UREA NITROGEN 9 mg/dL (7-20); CALCIUM 10.2 mg/dL (8.4-10.2); CARBON DIOXIDE 28 mmol/L (22-30); CHLORIDE 101 mmol/L (98-107); GLUCOSE 98 mg/dL (75-110); POTASSIUM 4.6 mmol/L (3.6-5.0)
[2019-06-19] MEDS ORDERED: NITROGLYCERIN 2% OINTMENT 1 GM PACKET TP ONE (11:34)
--- NOTE | 2019-06-19 13:07 | EKG REPORT ---
SEVERITY:- ABNORMAL ECG - SINUS RHYTHM PROBABLE ANTEROSEPTAL INFARCT, OLD : Confirmed by: Vincent Birch MD 19-Jun-2019 13:07:15
--- NOTE | 2019-06-19 13:08 | EKG REPORT ---
SEVERITY:- ABNORMAL ECG - SINUS RHYTHM PROBABLE LEFT ATRIAL ABNORMALITY ABNRM R PROG, CONSIDER ASMI OR LEAD PLACEMENT : Confirmed by: Vincent Birch MD 19-Jun-2019 13:07:48
--- NOTE | 2019-06-19 15:21 | ER Document Report ---
ED General - General Chief Complaint: Chest Pain Stated Complaint: CHEST PAIN Time Seen by Provider: 06/19/19 09:07 Mode of Arrival: Ambulatory TRAVEL OUTSIDE OF THE [place] IN LAST 30 DAYS: No - HPI Notes: Mr. Asher Espinoza is a 44-year-old male with prior history of NM and stent annamaria cement and ongoing 1 pack/day cigarette smoking now presenting with a chief complaint of intermittent chest pain of 4 days duration. Described as right- sided dull discomfort which is nonradiating and nonpleuritic. Not associated with dyspnea, nausea, vomiting or diaphoresis. Patient has no history of thromboembolic disease. Patient is currently taking aspirin, Plavix and a beta-derrek. - Related Data Allergies/Adverse Reactions: No Known Allergies Allergy (Verified 06/19/19 10:11) Home Medications: lisinopril, metoprolol, plavix, asa Past Medical History - General Information source: Patient - Social History Smoking Status: Current Every Day Smoker Family History: Reviewed & Not Pertinent, Hypertension Patient has suicidal ideation: No Patient has homicidal ideation: No - Past Medical History Cardiac Medical History: Reports: Hx Coronary Artery Disease, Hx Heart Attack, Hx Hypercholesterolemia, Hx Hypertension Pulmonary Medical History: Reports: Hx COPD Neurological Medical History: Denies: Hx Cerebrovascular Accident, Hx Seizures Endocrine Medical History: Denies: Hx Diabetes Mellitus Type 2 Renal/ Medical History: Denies: Hx Peritoneal Dialysis GI Medical History: Reports: Hx Irritable Bowel Psychiatric Medical History: Reports: Hx Anxiety Past Surgical History: Reports: Hx Cardiac Catheterization, Hx Cardiac Surgery - stents x2, Hx Coronary Stent - x2 - Immunizations Immunizations up to date: Yes Hx Diphtheria, Pertussis, Tetanus Vaccination: Yes Review of Systems - Review of Systems Notes: Constitutional: Negative for fever. HENT: Negative for sore throat. Eyes: Negative for visual changes. Cardiovascular: As per HPI. Respiratory: Negative for shortness of breath. Gastrointestinal: Negative for abdominal pain, vomiting or diarrhea. Genitourinary: Negative for dysuria. Musculoskeletal: Negative for back pain. Skin: Negative for rash. Neurological: Negative for headaches, weakness or numbness. 10 point ROS negative except as marked above and in HPI. Physical Exam - Vital signs Vitals: Temp Pulse Resp BP Pulse Ox 97.7 F 70 16 148/85 H 99 06/19/19 08:33 06/19/19 08:33 06/19/19 08:33 06/19/19 08:33 06/19/19 08:33 - Notes Notes: GENERAL: Well-developed well-nourished appearing in no acute distress. SKIN: Good turgor no rashes. HEAD: Normocephalic atraumatic. EYES: PERRLA. EOMI. Conjunctivae and sclerae clear. EARS: CANALS AND TMS CLEAR. NOSE: CLEAR. MOUTH: Moist mucosa. Good dentition. No stridor or edema. No drooling. NECK: Supple. No masses or thyromegaly. No adenopathy. Carotids 2+ without bruits. No JVD. BACK: Symmetrical without tenderness. CHEST: Respirations unlabored. Breath sounds clear and symmetrical. HEART: Regular rhythm. No murmur gallop or rub. ABDOMEN: Soft nontender without masses, organomegaly or rebound. Bowel sounds normally active. No bruits. GENITALIA: Deferred. EXTREMITIES: No edema. No calf tenderness. Cap refill less than 1.5 seconds. Dorsalis pedis and posterior tibial pulses 3+ and symmetrical. NEUROLOGICAL: GCS 15. Alert and oriented x3. Normal gait. Fluent speech. Cranial nerves II through XII intact. Sensorimotor and cerebellar normal. Normal tone. PSYCHIATRIC: Appropriate affect. Course - Vital Signs Vital signs: Temp Pulse Resp BP Pulse Ox 97.9 F 70 16 129/90 H 100 06/19/19 10:09 06/19/19 08:33 06/19/19 11:01 06/19/19 11:00 06/19/19 11:01 - Laboratory Result Diagrams: 06/19/19 10:21 06/19/19 10:21 Laboratory results interpreted by me: 06/19/19 10:21 Hgb 17.4 H Discharge - Discharge Clinical Impression: Chest pain Qualifiers: Chest pain type: unspecified Qualified Code(s): R07.9 - Chest pain, unspecified Condition: Stable Disposition: ADMITTED OBSERVATION Admitting Provider: Abebe (Hospitalist) Unit Admitted: Telemetry
[2019-06-19] MEDS ORDERED: MAG HYDROX/AL HYDROX/SIMETH SUSP 30 ML UDCUP PO PRN (16:05)
[2019-06-19] MEDS ORDERED: ACETAMINOPHEN 325 MG TABLET PO PRN (16:05)
[2019-06-19] MEDS ORDERED: NITROGLYCERIN 0.4 MG/TAB 25 TAB/BOTTLE SL PRN (16:12)
[2019-06-19] MEDS ORDERED: NICOTINE 14 MG/24 HR PATCH.TD24 TD ONE (16:27)
--- NOTE | 2019-06-19 16:27 | PDOC H&P ---
History of Present Illness Admission Date/PCP: 06/19/19 15:40 Patient complains of: Right-sided chest pain History of Present Illness: GORDON THOMPSON is a 44 year old male with a history of coronary artery disease with [place] 3 years ago S/P2 stents, hypothyroidism, IBS, hypertension, osteoarthritis, cervical spinal disease, who presents to the hospital with complaints of right chest pain starting 4 days ago with increasing frequency and duration. Describes the pain as a stabbing pain which radiates to the back, involving the right parasternal and substernal. Typically last about 5 minutes to half hour but lasted up to 1 hour today prompting patient to come into the hospital. Denies any improvement or worsening with exertion or rest. Denies any alleviating or aggravating factors. States that this does not feel similar to his usual anginal episodes that are mostly left-sided and involve his left arm. Took nitro at home but without improvement. The pain resolved spontaneously today and he is currently chest pain-free at this moment. Past Medical History Cardiac Medical History: Reports: Coronary Artery Disease, Myocardial Infarction, Hypertension Neurological Medical History: Denies: Seizures Endocrine Medical History: Reports: Hypothyroidism Denies: Diabetes Mellitus Type 2 Past Surgical History Past Surgical History: Reports: Cardiac Catheterization, Coronary Stent - x2 Social History Information Source: Patient Smoking Status: Current Every Day Smoker Frequency of Alcohol Use: None Hx Recreational Drug Use: No Hx Prescription Drug Abuse: No - Advance Directive Resuscitation Status: Full Code Family History Family History: Hypertension, Other - Crohn's disease Parental Family History Reviewed: Yes Children Family History Reviewed: NA Sibling(s) Family History Reviewed.: Yes Medication/Allergy Allergies/Adverse Reactions: No Known Allergies Allergy (Verified 06/19/19 10:11) Review of Systems Constitutional: ABSENT: chills, fever(s) Eyes: ABSENT: visual disturbances Nose, Mouth, and Throat: PRESENT: headache(s) Cardiovascular: PRESENT: chest pain. ABSENT: dyspnea on exertion, orthropnea Respiratory: ABSENT: cough, dyspnea Gastrointestinal: ABSENT: abdominal pain, nausea, vomiting Musculoskeletal: PRESENT: other - Back pain, calf tightness occasionally Integumentary: ABSENT: diaphoresis Neurological: PRESENT: dizziness - Occasional but chronic. ABSENT: confusion, vertigo Psychiatric: ABSENT: anxiety Endocrine: ABSENT: cold intolerance Physical Exam Vital Signs: Temp Pulse Resp BP Pulse Ox 97.9 F 70 19 112/85 100 06/19/19 10:09 06/19/19 08:33 06/19/19 15:01 06/19/19 15:00 06/19/19 15:01 Intake & Output 06/18/19 06/19/19 06/20/19 06:59 06:59 06:59 Weight 88.5 kg General appearance: PRESENT: no acute distress, cooperative Head exam: PRESENT: atraumatic Eye exam: PRESENT: conjunctiva pink Neck exam: ABSENT: JVD Respiratory exam: PRESENT: clear to auscultation red, symmetrical, unlabored. ABSENT: chest wall tenderness, tachypnea, wheezes Cardiovascular exam: PRESENT: RRR, +S1, +S2. ABSENT: diastolic murmur, systolic murmur, tachycardia Vascular exam: ABSENT: pallor GI/Abdominal exam: PRESENT: soft. ABSENT: normal bowel sounds, rebound, rigid, tenderness Extremities exam: ABSENT: calf tenderness, joint swelling, pedal edema, +1 edema, +2 edema Musculoskeletal exam: PRESENT: ambulatory Neurological exam: PRESENT: alert, awake, oriented to person, oriented to place, oriented to time Psychiatric exam: ABSENT: agitated, anxious Focused psych exam: ABSENT: pressured speech Results Laboratory Results: 06/19/19 10:21 06/19/19 10:21 06/19/19 06/19/19 10:21 10:21 WBC 8.0 RBC 5.25 Hgb 17.4 H Hct 49.3 MCV 94 MCH 33.1 MCHC 35.2 RDW 13.0 Plt Count 239 Seg Neutrophils % 66.8 Sodium 138.5 Potassium 4.6 Chloride 101 Carbon Dioxide 28 Anion Gap 10 BUN 9 Creatinine 0.89 Est GFR ( Amer) > 60 Glucose 98 Calcium 10.2 Total Bilirubin 0.5 AST 34 Alkaline Phosphatase 78 Total Protein 8.0 Albumin 4.8 Lipase 65.7 06/19/19 06/19/19 10:21 12:41 Troponin I 0.075 0.089 Impressions: Chest X-Ray 06/19/19 09:07 IMPRESSION: No acute cardiopulmonary process. Abdomen Ultrasound 06/19/19 09:08 IMPRESSION: 1. Suspected hepatic steatosis. 2. Normal appearance of the gallbladder and right kidney. 3. Nonvisualization of the pancreas. Assessment and Plan - Diagnosis (1) Atypical chest pain Is this a current diagnosis for this admission?: Yes Plan: Chest x-ray is clear, EKG shows no new ischemic changes, abdominal ultrasound shows no evidence of cholecystitis/cholelithiasis or biliary tract disease Mildly elevated troponin 0.075--0.089--> trend 1 more Check d-dimer to rule out PE and aortic dissection [less likely given normal blood pressures] Admit for observation on telemetry Consult patient's primary television servicer Dr. Chin Nitroglycerin as needed--if response to nitroglycerin is noted, will place on Imdur (2) Hypertension Qualifiers: Hypertension type: essential hypertension Qualified Code(s): I10 - Essential (primary) hypertension Is this a current diagnosis for this admission?: Yes Plan: Continue lisinopril 5 mg daily. BP is controlled at this time. (3) Coronary artery disease Qualifiers: Coronary Disease-Associated Artery/Lesion type: [place] artery [place] vs. transplanted heart: [place] heart Associated angina: with unspecified angina Qualified Code(s): I25.119 - Atherosclerotic heart disease of [place] coronary artery with unspecified angina pectoris Is this a current diagnosis for this admission?: Yes Plan: Continue aspirin and Plavix. Continue metoprolol. Lipitor added (4) Tobacco dependence Is this a current diagnosis for this admission?: Yes Plan: Nicotine patch. Smoking cessation advised. - Time Time Spent with patient: 35 or more minutes
[2019-06-19] MEDS ORDERED: CLOPIDOGREL BISULFATE 75 MG TABLET PO ONE (17:00)
--- NOTE | 2019-06-19 18:36 | PDOC PROGRESS REPORT ---
Subjective Progress Note for:: 06/19/19 Subjective:: Patient presents with right-sided chest pain which he describes as atypical, twisting type, no definite precipitating factor. Lasted a few minutes then resolve spontaneously. Patient unfortunately still smokes. Patient has known history of coronary artery disease with prior stent placement. Patient denied any recent cardiac evaluations. Troponin I are noted to be in the indeterminate range. Reason For Visit: CHEST PAIN Physical Exam Vital Signs: Temp Pulse Resp BP Pulse Ox 98 F 70 19 112/85 100 06/19/19 16:33 06/19/19 08:33 06/19/19 15:01 06/19/19 15:00 06/19/19 15:01 Intake & Output 06/18/19 06/19/19 06/20/19 06:59 06:59 06:59 Weight 88.5 kg Exam: GENERAL: well-nourished and in no acute distress. Alert and oriented x3 HEAD: Atraumatic, normocephalic. EYES: MARINE, sclera anicteric, conjunctiva are normal. ENT: Moist mucous membranes. No oral ulcerations or bleeding gums noted. No obvious ear, nose or throat abnormalities noted. NECK: supple without lymphadenopathy. Trachea is central. No cervical or axillary lymphadenopathy noted. Carotids are 2+, JVD WNL LUNGS: Breath sounds clear bilaterally. No wheezes rales or rhonchi noted. No significant dullness noted on percussion. CHEST: Palpation of the chest wall shows no significant chest wall tenderness. 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 ABDOMEN: Soft, no significant tenderness appreciated, normoactive bowel sounds. No guarding, no rebound. No rigidity noted . No masses appreciated. EXTREMITIES: Pedal pulses are 1-2+, no calf tenderness noted. No clubbing or cyanosis. negative pedal edema noted NEUROLOGICAL: Focused neurological exam showed no significant neurologic deficit. Normal speech, no focal weakness appreciated. PSYCH: Normal mood, normal affect. Judgment and insight within normal limits. SKIN: No significant ecchymosis, skin is noted to be warm. MUSCULOSKELETAL EXAM: No significant acute joint swelling noted. Results Laboratory Results: 06/19/19 10:21 06/19/19 10:21 06/19/19 06/19/19 10:21 10:21 WBC 8.0 RBC 5.25 Hgb 17.4 H Hct 49.3 MCV 94 MCH 33.1 MCHC 35.2 RDW 13.0 Plt Count 239 Seg Neutrophils % 66.8 Sodium 138.5 Potassium 4.6 Chloride 101 Carbon Dioxide 28 Anion Gap 10 BUN 9 Creatinine 0.89 Est GFR ( Amer) > 60 Glucose 98 Calcium 10.2 Total Bilirubin 0.5 AST 34 Alkaline Phosphatase 78 Total Protein 8.0 Albumin 4.8 Lipase 65.7 06/19/19 06/19/19 06/19/19 10:21 12:41 16:27 Troponin I 0.075 0.089 0.066 EKG Comments: Sinus rhythm. Evidence of prior anteroseptal MO with some nonspecific minor T wave changes. Impressions: Chest X-Ray 06/19/19 09:07 IMPRESSION: No acute cardiopulmonary process. Abdomen Ultrasound 06/19/19 09:08 IMPRESSION: 1. Suspected hepatic steatosis. 2. Normal appearance of the gallbladder and right kidney. 3. Nonvisualization of the pancreas. Assessment & Plan - Diagnosis (1) Atypical chest pain Is this a current diagnosis for this admission?: Yes (2) Coronary artery disease Qualifiers: Coronary Disease-Associated Artery/Lesion type: [place] artery [place] vs. transplanted heart: [place] heart Associated angina: with unspecified angina Qualified Code(s): I25.119 - Atherosclerotic heart disease of [place] coronary artery with unspecified angina pectoris Is this a current diagnosis for this admission?: Yes (3) Hypertension Qualifiers: Hypertension type: essential hypertension Qualified Code(s): I10 - Essential (primary) hypertension Is this a current diagnosis for this admission?: Yes (4) Tobacco dependence Is this a current diagnosis for this admission?: Yes - Notes Notes: Patient has known history of coronary artery disease. Presents with chest pain which felt to be somewhat atypical and different than his previous angina which led to his previous stent placement. Patient unfortunately continues to smoke. Patient has no health insurance but claims that he is compliant with medications. Patient does describe significant problems with indigestion but not on any proton pump inhibitor. At this point agree with serial EKGs and cardiac enzymes. Due to atypical na ture of chest pain, unremarkable EKG and history of smoking, will schedule patient for a CTA of the chest to rule out any pulmonary cause of chest pain or other noncardiac causes of chest pain. Will place patient empirically on proton pump inhibitor. If there is a bump up in the troponin I, will have low threshold for consideration for heart catheterization. Actually option of proceeding directly to heart catheterization was discussed with the patient. He does prefer to undergo stress testing. - Time Time with patient: Greater than 35 minutes Medications reviewed and adjusted accordingly: Yes
[2019-06-19] MEDS ORDERED: PANTOPRAZOLE SODIUM 40 MG TABLET.DR PO ONE (20:00)
[2019-06-19 20:10] LABS: CHOLESTEROL 272.43 mg/dL (0-200); TRIGLYCERIDES 227 mg/dL (<150)
[2019-06-19 20:21] LABS: DIRECT LDL 218 mg/dL (<100)
[2019-06-19 20:23] LABS: VLDL CHOLESTEROL 45.4 mg/dL (10-31)
[2019-06-19] MEDS ORDERED: ATORVASTATIN CALCIUM 40 MG TABLET PO SCH (22:00)
[2019-06-20 06:27] LABS: HEMOGLOBIN 16.5 g/dL (13.5-17.0); MEAN CORPUSCULAR HEMOGLOBIN 32.5 pg (27.0-33.4); MEAN CORPUSCULAR VOLUME 93 fl (80-97); PLATELET COUNT 215 10^3/uL (150-450); RED BLOOD COUNT 5.07 10^6/uL (4.35-5.55); RED CELL DISTRIBUTION WIDTH 12.8 % (11.5-14.0); WHITE BLOOD COUNT 7.3 10^3/uL (4.0-10.5)
[2019-06-20 06:46] LABS: ANION GAP 11 (5-19); BLOOD UREA NITROGEN 14 mg/dL (7-20); CALCIUM 9.6 mg/dL (8.4-10.2); CARBON DIOXIDE 24 mmol/L (22-30); CHLORIDE 104 mmol/L (98-107); GLUCOSE 91 mg/dL (75-110); POTASSIUM 4.4 mmol/L (3.6-5.0)
--- NOTE | 2019-06-20 07:31 | EKG REPORT ---
SEVERITY:- ABNORMAL ECG - SINUS RHYTHM PROBABLE ANTEROSEPTAL INFARCT, AGE INDETERM : Confirmed by: Vincent Birch MD 20-Jun-2019 07:30:04
[2019-06-20] MEDS ORDERED: CLOPIDOGREL BISULFATE 75 MG TABLET PO SCH (10:00)
[2019-06-20] MEDS ORDERED: ENOXAPARIN SODIUM INJ 40 MG/0.4 ML DISP.SYRIN SUBCUT SCH (10:00)
[2019-06-20] MEDS ORDERED: PANTOPRAZOLE SODIUM 40 MG TABLET.DR PO SCH (10:00)
[2019-06-20] MEDS ORDERED: ASPIRIN 81 MG TABLET, ENT COATED PO SCH (10:00)
[2019-06-20] MEDS ORDERED: NICOTINE 14 MG/24 HR PATCH.TD24 TD SCH (10:00)
[2019-06-20] MEDS ORDERED: LISINOPRIL 5 MG TABLET PO SCH (10:00)
[2019-06-20] MEDS ORDERED: METOPROLOL TARTRATE 25 MG TABLET PO SCH (10:00)
--- NOTE | 2019-06-20 11:19 | PDOC DISCHARGE SUMMARY ---
Impression - Admit/DC Date/PCP Admission Date/Primary Care Provider: 06/19/19 15:40 Discharge Date: 06/20/19 - Discharge Diagnosis (1) Atypical chest pain Is this a current diagnosis for this admission?: Yes (2) Hypertension Is this a current diagnosis for this admission?: Yes (3) Coronary artery disease Is this a current diagnosis for this admission?: Yes (4) Tobacco dependence Is this a current diagnosis for this admission?: Yes - Assessment Summary: Patient presented with atypical right-sided chest pain. At the time of admission, patient's chest pain was resolved. Patient's vitals were all stable. Chest x-ray was done which was clear. EKG revealed no new signs of new ischemic changes. Abdominal ultrasound was done in the ER to evaluate his right-sided chest pain and it showed no evidence of biliary tract disease/cholecystitis/cholelithiasis. Troponin was initially mildly elevated at 0.075 peaking at 0.089 and then trended back down. Patient has reported being chest pain-free though had just few seconds of right-sided chest pain again last night. D-dimer was also performed which was negative making pulmonary embolism and aortic dissection less likely. 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 Upton who recommended an echocardiogram and stress test tomorrow. However patient is adamant about leaving this morning and states that he would want to get this done at outpatient. Patient is self-pay does not want to spend any more time in the hospital and he states that he will get the stress test done as outpatient and will pay for it if needed. Patient has been set up with financial support personnel and appointments have been made for him to follow-up with the [facility] and Dr. Upton in 2 days at the office to schedule the stress test. Pain is currently chest pain-free and would like to be discharged. - Additional Information Resuscitation Status: Full Code Discharge Diet: Cardiac Discharge Activity: Activity As Tolerated Referrals: [facility] [Outside] - 06/29/19 3:30 pm ANA UPTON MD [ACTIVE STAFF] - 06/22/19 1:30 pm Prescriptions: Atorvastatin Calcium [Lipitor 40 mg Tablet] 40 mg PO QHS #30 tablet Nitroglycerin [Nitrostat 0.4 mg (1/150 Gr) Tabs 25/Bottle] 1 tab SL Q5MP PRN #1 bottle PRN Reason: For Chest Pain Home Medications: Aspirin [Ecotrin] 81 mg PO DAILY 06/19/19 Clopidogrel Bisulfate [Plavix 75 mg Tablet] 75 mg PO DAILY 06/19/19 Lisinopril [Prinivil 5 mg Tablet] 5 mg PO DAILY 06/19/19 Metoprolol Succinate [Toprol Xl 25 mg Tab.sr] 12.5 mg PO DAILY 06/19/19 Acetaminophen [Tylenol 325 mg Tablet] 650 mg PO Q4HP PRN tablet 06/20/19 Atorvastatin Calcium [Lipitor 40 mg Tablet] 40 mg PO QHS #30 tablet 06/20/19 Nitroglycerin [Nitrostat 0.4 mg (1/150 Gr) Tabs 25/Bottle] 1 tab SL Q5MP PRN #1 bottle 06/20/19 History of Present Illiness History of Present Illness: GORDON THOMPSON is a 44 year old male with a history of coronary artery disease with TX 3 years ago S/P2 stents, hypothyroidism, IBS, hypertension, osteoarthritis, cervical spinal disease, who presents to the hospital with complaints of right chest pain starting 4 days ago with increasing frequency and duration. Describes the pain as a stabbing pain which radiates to the back, involving the right parasternal and substernal. Typically last about 5 minutes to half hour but lasted up to 1 hour today prompting patient to come into the hospital. Denies any improvement or worsening with exertion or rest. Denies any alleviating or aggravating factors. States that this does not feel similar to his usual anginal episodes that are mostly left-sided and involve his left arm. Took nitro at home but without improvement. The pain resolved spontaneously today and he is currently chest pain-free at this moment. Physical Exam Vital Signs: Temp Pulse Resp BP Pulse Ox 98.0 F 76 18 132/91 H 100 06/20/19 07:50 06/20/19 07:50 06/20/19 07:50 06/20/19 07:50 06/20/19 07:50 Intake & Output 06/19/19 06/20/19 06/21/19 06:59 06:59 06:59 Intake Total 240 Balance 240 Weight 87.9 kg General appearance: PRESENT: no acute distress, cooperative Neck exam: ABSENT: JVD Respiratory exam: PRESENT: clear to auscultation red, unlabored. ABSENT: chest wall tenderness, tachypnea, wheezes Cardiovascular exam: PRESENT: RRR, +S1, +S2. ABSENT: tachycardia Results Laboratory Results: WBC 7.3 10^3/uL (4.0-10.5) 06/20/19 06:06 RBC 5.07 10^6/uL (4.35-5.55) 06/20/19 06:06 Hgb 16.5 g/dL (13.5-17.0) 06/20/19 06:06 Hct 47.0 % (37.9-51.0) 06/20/19 06:06 MCV 93 fl (80-97) 06/20/19 06:06 MCH 32.5 pg (27.0-33.4) 06/20/19 06:06 MCHC 35.0 g/dL (32.0-36.0) 06/20/19 06:06 RDW 12.8 % (11.5-14.0) 06/20/19 06:06 Plt Count 215 10^3/uL (150-450) 06/20/19 06:06 Lymph % (Auto) 21.2 % (13-45) 06/19/19 10:21 [place] % (Auto) 7.9 % (3-13) 06/19/19 10:21 Eos % (Auto) 3.0 % (0-6) 06/19/19 10:21 Baso % (Auto) 1.1 % (0-2) 06/19/19 10:21 Absolute Neuts (auto) 5.4 10^3/uL (1.7-8.2) 06/19/19 10:21 Absolute Lymphs (auto) 1.7 10^3/uL (0.5-4.7) 06/19/19 10:21 Absolute Monos (auto) 0.6 10^3/uL (0.1-1.4) 06/19/19 10:21 Absolute Eos (auto) 0.2 10^3/uL (0.0-0.6) 06/19/19 10:21 Absolute Basos (auto) 0.1 10^3/uL (0.0-0.2) 06/19/19 10:21 Seg Neutrophils % 66.8 % (42-78) 06/19/19 10:21 D-Dimer < 0.27 ug/mL (0.00-0.50) 06/19/19 16:27 Sodium 139.0 mmol/L (137-145) 06/20/19 06:06 Potassium 4.4 mmol/L (3.6-5.0) 06/20/19 06:06 Chloride 104 mmol/L (98-107) 06/20/19 06:06 Carbon Dioxide 24 mmol/L (22-30) 06/20/19 06:06 Anion Gap 11 (5-19) 06/20/19 06:06 BUN 14 mg/dL (7-20) 06/20/19 06:06 Creatinine 0.95 mg/dL (0.52-1.25) 06/20/19 06:06 Est GFR ( Amer) > 60 (>60) 06/20/19 06:06 Est GFR (MDRD) Non-Af > 60 (>60) 06/20/19 06:06 Glucose 91 mg/dL (75-110) 06/20/19 06:06 Calcium 9.6 mg/dL (8.4-10.2) 06/20/19 06:06 Magnesium 2.3 mg/dL (1.6-2.3) 06/20/19 06:06 Total Bilirubin 0.5 mg/dL (0.2-1.3) 06/19/19 10:21 Direct Bilirubin 0.4 mg/dL (0.0-0.4) 06/19/19 10:21 Neonat Total Bilirubin Not Reportable 06/19/19 10:21 Neonat Direct Bilirubin Not Reportable 06/19/19 10:21 Neonat Indirect Bili Not Reportable 06/19/19 10:21 AST 34 U/L (17-59) 06/19/19 10:21 ALT 38 U/L (<50) 06/19/19 10:21 Alkaline Phosphatase 78 U/L (38-126) 06/19/19 10:21 Troponin I 0.066 ng/mL 06/19/19 16:27 Total Protein 8.0 g/dL (6.3-8.2) 06/19/19 10:21 Albumin 4.8 g/dL (3.5-5.0) 06/19/19 10:21 Triglycerides 227 mg/dL (<150) H 06/19/19 16:27 Cholesterol 272.43 mg/dL (0-200) H 06/19/19 16:27 LDL Cholesterol Direct 218 mg/dL (<100) H 06/19/19 16:27 VLDL Cholesterol 45.4 mg/dL (10-31) H 06/19/19 16:27 HDL Cholesterol 39 mg/dL (>40) L 06/19/19 16:27 Lipase 65.7 U/L (23-300) 06/19/19 10:21 06/19/19 06/19/19 06/19/19 10: 12:41 16:27 Troponin I 0.075 0.089 0.066 Impressions: Chest X-Ray 06/19/19 09:07 IMPRESSION: No acute cardiopulmonary process. Abdomen Ultrasound 06/19/19 09:08 IMPRESSION: 1. Suspected hepatic steatosis. 2. Normal appearance of the gallbladder and right kidney. 3. Nonvisualization of the pancreas. Plan Time Spent: Less than 30 Minutes Stroke Is this a Stroke Patient?: No Acute Heart Failure - Is this a Heart Failure Patient?: No
[2019-06-20 12:09] VITALS: BP 117/81
== END 2019-06-20 12:10 | disposition home or self-care (01) ==
LOC: ER 08:21 → EH 15:40 → 4S 17:29
PROVIDERS: ADMIT Internal Medicine; ATTEND Internal Medicine
DX: R07.89 Other chest pain (principal); I10 Essential (primary) hypertension; I25.119 Atherosclerotic heart disease of native coronary artery with unspecified angina pectoris; R79.89 Other specified abnormal findings of blood chemistry; R51 Headache; K30 Functional dyspepsia; R42 Dizziness and giddiness; F17.210 Nicotine dependence, cigarettes, uncomplicated; M19.90 Unspecified osteoarthritis, unspecified site; I25.2 Old myocardial infarction; M48.8X2 Other specified spondylopathies, cervical region; Z79.82 Long term (current) use of aspirin; Z79.899 Other long term (current) drug therapy; Z79.02 Long term (current) use of antithrombotics/antiplatelets; Z95.5 Presence of coronary angioplasty implant and graft; Z82.49 Family history of ischemic heart disease and other diseases of the circulatory system; Z59.7 Insufficient social insurance and welfare support; Z87.19 Personal history of other diseases of the digestive system
CPT/HCPCS: 93005 ×2; 99285; 36415 ×2; 83690; 83735; 85025; 85027; 80048; 80053; 84484; 85379; 80061; 71046; 76705; 93010 ×2; G0378 ×3; J3490 ×4